=== PATIENT | male | born 1960 | race Caucasian/White ===

== ENCOUNTER → 2019-11-24 | Outpatient (REF) | payer OTHER ==
[~2019-11-24] MED LIST: COCO1CAP PO; COCOOIL6 XX; MULTTAB PO
[2019-11-24 10:03] LABS: BASO % 0.5 % (0.0-1.0); EOS # 0.1 10^3/uL (0.0-0.5); EOS % 1.8 % (0.0-3.0); HEMATOCRIT 44.4 % (42.0-52.0); HEMOGLOBIN 15.2 g/dl (13.5-17.5); LYMPH # 1.7 10^3/uL (1.5-5.0); LYMPH % 25.1 % (24.0-44.0); MEAN CORPUSCULAR HEMOGLOBIN 31.1 pg (27.0-33.0); MEAN CORPUSCULAR HGB CONC 34.2 g/dl (32.0-36.5); MONO # 0.6 10^3/uL (0.0-0.8); MONO % 9.6 % (0.0-5.0); NEUTROPHILS # 4.2 10^3/uL (1.5-8.5); NEUTROPHILS % 62.8 % (36.0-66.0); PLATELET COUNT, AUTOMATED 244 10^3/uL (150-450); RED BLOOD COUNT 4.88 10^6/uL (4.30-6.10); WHITE BLOOD COUNT 6.7 10^3/uL (4.0-10.0)
[2019-11-24 10:28] LABS: ALBUMIN 3.9 GM/DL (3.2-5.2); ALT/SGPT 46 U/L (12-78); BILIRUBIN,TOTAL 0.6 MG/DL (0.2-1.0); BLOOD UREA NITROGEN 15 MG/DL (7-18); CARBON DIOXIDE LEVEL 28 MEQ/L (21-32); CHLORIDE LEVEL 107 MEQ/L (98-107); CHOLESTEROL LEVEL 207 MG/DL (<200); CHOLESTEROL RISK RATIO 3.338 (<5); CREATININE FOR GFR 0.94 MG/DL (0.70-1.30); GLOMERULAR FILTRATION RATE > 60.0 (>56); GLUCOSE, FASTING 97 MG/DL (70-100); HDL CHOLESTEROL 62 MG/DL (>40); LDL CHOLESTEROL 129 MG/DL (<100); NON-HDL-C 145 MG/DL; POTASSIUM SERUM 4.4 MEQ/L (3.5-5.1); SODIUM LEVEL 140 MEQ/L (136-145); TOTAL PROTEIN 6.5 GM/DL (6.4-8.2); TRIGLYCERIDES LEVEL 78 MG/DL (<150)
== END ==
LOC: M LABDRAW1 08:10
PROVIDERS: ATTEND Family Medicine
DX: I10 Essential (primary) hypertension (principal); F52.21 Male erectile disorder
CPT/HCPCS: 36415; 80053; 80061; 85025; G0103

== ENCOUNTER 2021-06-09 00:16 | Emergency (ER) | payer OTHER ==
[~2021-06-09] VITALS: Ht 167.6 cm; Wt 83.3 kg
[2021-06-09] MEDS ORDERED: LISI10TA22 PO (00:28)
[2021-06-09] MEDS ORDERED: SILD20TA50 PO (00:28)
[2021-06-09 00:53] LABS: BASO % 0.3 % (0.0-1.0); EOS # 0.1 10^3/uL (0.0-0.5); EOS % 0.8 % (0.0-3.0); HEMATOCRIT 41.9 % (42.0-52.0); HEMOGLOBIN 14.9 g/dl (13.5-17.5); LYMPH # 1.3 10^3/uL (1.5-5.0); LYMPH % 14.8 % (24.0-44.0); MEAN CORPUSCULAR HEMOGLOBIN 31.3 pg (27.0-33.0); MEAN CORPUSCULAR HGB CONC 35.6 g/dl (32.0-36.5); MONO # 0.6 10^3/uL (0.0-0.8); MONO % 6.9 % (2.0-8.0); NEUTROPHILS # 6.8 10^3/uL (1.5-8.5); NEUTROPHILS % 76.9 % (36.0-66.0); PLATELET COUNT, AUTOMATED 222 10^3/uL (150-450); RED BLOOD COUNT 4.76 10^6/uL (4.30-6.10); WHITE BLOOD COUNT 8.9 10^3/uL (4.0-10.0)
[2021-06-09] MEDS ORDERED: ONDANSETRON 4MG/2ML VIAL IV ONE (01:10)
[2021-06-09 01:19] LABS: ALBUMIN 4.1 GM/DL (3.2-5.2); ALT/SGPT 29 U/L (12-78); BILIRUBIN,DIRECT < 0.1 MG/DL (0.0-0.2); BILIRUBIN,TOTAL 0.3 MG/DL (0.2-1.0); BLOOD UREA NITROGEN 18 MG/DL (7-18); CALCIUM LEVEL 8.7 MG/DL (8.8-10.2); CARBON DIOXIDE LEVEL 29 MEQ/L (21-32); CHLORIDE LEVEL 107 MEQ/L (98-107); CK-MB VALUE MASS 1.5 NG/ML (<3.6); CPK CREATINE PHOSPHOKINASE 176 U/L (39-308); CREATININE FOR GFR 1.11 MG/DL (0.70-1.30); GLOMERULAR FILTRATION RATE > 60.0 (>49); GLUCOSE, FASTING 112 MG/DL (70-100); LIPASE 156 U/L (73-393); MB/CK RELATIVE INDEX 0.85 (< OR =4); POTASSIUM SERUM 4.1 MEQ/L (3.5-5.1); SODIUM LEVEL 140 MEQ/L (136-145); TOTAL PROTEIN 6.8 GM/DL (6.4-8.2); TROPONIN I < 0.02 NG/ML (< 0.10)
[2021-06-09 01:20] LABS: INR 0.85
[2021-06-09 01:21] LABS: PARTIAL THROMBOPLASTIN TIME 27.8 SECONDS (25.9-37.0)
[2021-06-09] MEDS ORDERED: MORPHINE 2 MG/ML 1ML VIAL (J2270) IV ONE (02:30)
[2021-06-09] MEDS ORDERED: HALOPERIDOL 5MG/ML VIAL (J1630 PER 1) IV ONE (02:40)
--- NOTE | 2021-06-09 02:43 | REPVR ---
PROCEDURE INFORMATION: Exam: XR Chest Exam date and time: 06/09/2021 1:32 AM Age: 60 years old Clinical indication: Other: Chest pain TECHNIQUE: Imaging protocol: XR of the chest. Views: 1 view. COMPARISON: CT Spine,thoracic w/o contrast 08/06/2015 12:44 PM FINDINGS: Lungs: Unremarkable. No consolidation. Pleural spaces: Unremarkable. No pleural effusion. No pneumothorax. Heart/Mediastinum: Unremarkable. No cardiomegaly. Vasculature: Elongation of the thoracic aorta. Bones/joints: Unremarkable. IMPRESSION: No acute cardiopulmonary process. Electronically signed by: Elliott Valadez On 06/09/2021 02:43:00 AM
--- NOTE | 2021-06-09 02:50 | REPVR ---
PROCEDURE INFORMATION: Exam: US Abdomen, Limited; Right Upper Quadrant Exam date and time: 06/09/2021 2:25 AM Age: 60 years old Clinical indication: Abdominal pain; Acute; Additional info: Right upper quadrant pain and nausea TECHNIQUE: Imaging protocol: US abdomen. Real time ultrasound with image documentation. Limited exam focused on the right upper quadrant. COMPARISON: CT Spine,thoracic w/o contrast 08/06/2015 12:44 PM FINDINGS: Liver: Normal. No masses. Gallbladder: There is cholelithiasis and biliary sludge. No pathologic gallbladder wall thickening. Common bile duct: Normal. No stones. No dilation. Pancreas: No focal abnormality involving the visualized portions of the pancreas. Right kidney: Right kidney measures up to 11.9 cm and is without hydronephrosis. IMPRESSION: 1. Distended gallbladder with cholelithiasis and biliary sludge. 2. No pathologic gallbladder wall thickening. Electronically signed by: Elliott Valadez On 06/09/2021 02:49:59 AM
[2021-06-09] MEDS ORDERED: ISOVUE-370 76% 100ML VIAL As Ordered ONE (03:04)
--- NOTE | 2021-06-09 03:41 | REPVR ---
PROCEDURE INFORMATION: Exam: CTA Chest With Contrast Exam date and time: 06/09/2021 3:16 AM Age: 60 years old Clinical indication: Chest wall pain; Additional info: Chest and epigastric pain TECHNIQUE: Imaging protocol: Computed tomographic angiography of the chest with contrast. 3D rendering (Not supervised by radiologist): MIP and/or 3D reconstructed images were created by the technologist. Radiation optimization: All CT scans at this facility use at least one of these dose optimization techniques: automated exposure control; mA and/or kV adjustment per patient size (includes targeted exams where dose is matched to clinical indication); or iterative reconstruction. Contrast material: ISOVUE 370; Contrast volume: 100 ml; Contrast route: INTRAVENOUS (IV); COMPARISON: CR PORTABLE CHEST X-RAY 06/09/2021 1:22 AM FINDINGS: Pulmonary arteries: Normal. No pulmonary emboli. Aorta: Unremarkable. No aortic aneurysm. No aortic dissection. Lungs: There are bilateral posterior dependent changes. No consolidation to indicate pneumonia. Pleural spaces: Unremarkable. No pneumothorax. No pleural effusion. Heart: Unremarkable. No cardiomegaly. No pericardial effusion. Lymph nodes: Unremarkable. No enlarged lymph nodes. Bones/joints: There are degenerative changes involving the spine. Soft tissues: Unremarkable. IMPRESSION: No acute abnormality involving the chest. Electronically signed by: Elliott Valadez On 06/09/2021 03:40:54 AM
--- NOTE | 2021-06-09 03:53 | REPVR ---
PROCEDURE INFORMATION: Exam: CT Abdomen And Pelvis With Contrast Exam date and time: 06/09/2021 3:16 AM Age: 60 years old Clinical indication: Abdominal pain; Epigastric; Additional info: Chest and epigastric pain, evaluate cbd TECHNIQUE: Imaging protocol: Computed tomography of the abdomen and pelvis with contrast. Radiation optimization: All CT scans at this facility use at least one of these dose optimization techniques: automated exposure control; mA and/or kV adjustment per patient size (includes targeted exams where dose is matched to clinical indication); or iterative reconstruction. Contrast material: ISOVUE 370; Contrast volume: 100 ml; Contrast route: INTRAVENOUS (IV); COMPARISON: GALLBLADDER US 06/09/2021 2:15 AM FINDINGS: Limitations: Patient motion. Lungs: There are bibasilar dependent changes. Liver: Normal. No mass. Gallbladder and bile ducts: Cholelithiasis. Gallbladder is distended. Pancreas: Normal. No ductal dilation. Spleen: Normal. No splenomegaly. Adrenal glands: Normal. No mass. Kidneys and ureters: Normal. No hydronephrosis. Stomach and bowel: Unremarkable. No obstruction. No mucosal thickening. Appendix: No evidence of appendicitis. Intraperitoneal space: Unremarkable. No free air. No significant fluid collection. Vasculature: There are phleboliths within the pelvis. Lymph nodes: Unremarkable. No enlarged lymph nodes. Urinary bladder: Unremarkable as visualized. Reproductive: Unremarkable as visualized. Bones/joints: There are degenerative changes involving the spine. Soft tissues: Small fat containing umbilical hernia. IMPRESSION: 1. Distended gallbladder with cholelithiasis. Common bile duct is normal. 2. Additional findings as above. Electronically signed by: Elliott Valadez On 06/09/2021 03:52:59 AM
[2021-06-09] MEDS ORDERED: GI COCKTAIL 50ML BTL(HYOSCYAMINE/MAALOX/LIDOCAINE VISCOUS)(1:3:1) PO ONE (04:10)
[2021-06-09 05:35] LABS: CK-MB VALUE MASS 1.9 NG/ML (<3.6); CPK CREATINE PHOSPHOKINASE 151 U/L (39-308); MB/CK RELATIVE INDEX 1.26 (< OR =4); TROPONIN I < 0.02 NG/ML (< 0.10)
--- NOTE | 2021-06-09 05:42 | ECGEPIP ---
[facility] - ED Test Date: 2021-06-09 Pat Name: ANEESH ELLINGTON Department: Room: - Gender: Male Park Activities Coordinator: theresa : 1960 Requested By: DRAKE Cuevas Order Number: [id number] Reading MD: Odell Barajas Measurements Intervals [place] Rate: 45 P: 64 [place]: 144 QRS: 65 QRSD: 92 T: 32 QT: 458 QTc: 396 Interpretive Statements Sinus bradycardia NSTTW ABNORMALITY(S) NO PRIORS FOR COMPARISON Electronically Signed on 06-09-2021 5:42:12 EDT by Odell Barajas
[2021-06-09] MEDS ORDERED: ZOFR4TAB16 PO (07:10)
[2021-06-09 07:23] VITALS: BP 159/81
--- NOTE | 2021-06-09 20:39 | ECGEPIP ---
[facility] - ED Test Date: 2021-06-09 Pat Name: ANEESH ELLINGTON Department: Room: - Gender: Male Disability Benefits Specialist: JCOOSilvia : 1960 Requested By: DRAKE Cuevas Order Number: [id number] Reading MD: Odell Barajas Measurements Intervals [place] Rate: 47 P: 48 ME: 190 QRS: 16 QRSD: 88 T: -6 QT: 464 QTc: 410 Interpretive Statements Sinus bradycardia NSTTW ABNORMALITY(S) SIMILAR TO 06/09/21 Electronically Signed on 06-09-2021 20:39:29 EDT by Odell Barajas
== END 2021-06-09 07:31 | disposition home or self-care (01) ==
LOC: M ED 00:16
DX: K80.50 Calculus of bile duct without cholangitis or cholecystitis without obstruction (principal); I10 Essential (primary) hypertension; Z79.899 Other long term (current) drug therapy
CPT/HCPCS: 71045; 71275; 74177; 76705; 80048; 80076; 82550; 82553; 83690; 84484; 85025; 85610; 85730; 93005; 93041; 94760; 96374; 96375; 99285; J1630; J2270; J2405; Q9967

== ENCOUNTER → 2021-07-11 | Outpatient (CLI) | payer OTHER ==
[~2021-07-11] MED LIST changes: +LISI10TA22 PO; +SILD20TA50 PO; +ZOFR4TAB16 PO
== END ==
LOC: M LABSMTC 11:13
PROVIDERS: ATTEND Anesthesiology
DX: Z11.52 Encounter for screening for COVID-19 (principal); Z20.822 Contact with and (suspected) exposure to COVID-19

== ENCOUNTER 2021-07-16 09:13 | Day surgery (SDC) | payer OTHER ==
[~2021-07-16] VITALS: Ht 167.6 cm; Wt 79.6 kg
[~2021-07-16 09:13] MED LIST changes: +LIDOCAINE 1% MDV 20ML VIAL SQ PRN; +LR 1,000 ML IV ONE; +ceFAZolin SOD 2 GM in IV 1 EA IV ONE
--- OUTSIDE RECORDS SUMMARY | 2021-07-16 09:19 | CCD | Continuity of Care Document ---
Author Author Adama FELDMAN M.D. Organization Unknown Address [address] [place] [address] Phone [phone] Care Team Providers Care Control Systems Drafting Officer Name Role Phone Ysabel MTZ M.D., Gordon Chaim UZIEL [phone] Problems Active Problems Provider Date Essential hypertension Salome Feldman M.D. Onset: 01/31 Social History Type Date Description Comments Sex Unknown Tobacco Use Start: Unknown End: Unknown denies cigarette use Tobacco Use Start: Unknown End: Unknown Former Smoke less Tobacco User, Used 3 Times Daily quit after doing it for 10 years, in 200 5 ETOH Use Occasionally consumes alcohol be er or wine-7 drinks a week, sometimes less Tobacco Use Start: 09/07/79 End: 09/07/05 Patient is a forme r smoker smoked 1 ppd Recreational Drug Use Denies Drug Use Smoking Status Reviewed: 06/10/21 Patient is a former smoker sm oked 1 ppd Exercise Type/Frequency Exercises sporadically Tattoo/Piercing NOne Sun Exposure Does not use sunscreen Seat Belt/Car Seat Always uses seat belt Bike Helmet Never Smoke Alarms Yes Smoke Alarms Carbon Monoxide Detector: Yes Allergies and adverse reactions Description No Known Drug Allergies Medications Active Medications SIG Qnty Indications Ordering Provide r Date Lisinopril 10mg Tablets Take One Tablet By Mouth Every Day 90tabs I10 Salome Feldman M.D. 017 Vitamin D 1000Unit Tablets 1 po qd 100tabs Salome Feldman M.D. 02/26/2010 Sildenafil Citrate 20mg Tablets take 1-2 tablets by mouth prior to intercourse as directed Unknown Immunizations CPT Code Status Date Vaccine Lot # [id number] Given 12/17/2020 Moderna Sars-(Co vid-19) vaccine, mRNA, LNP-S, PF, 100 mcg/ 0.5 mL 43240 Given 11/16/2020 Moderna Sars-(Co vid-19) vaccine, mRNA, LNP-S, PF, 100 mcg/ 0.5 mL [id number] Given 10/17/2019 Boostrix (Tdap) Tetnus, Diphtheria Toxoids & Acellular Pertussis [id number] Given 07/16/2015 TB Intradermal Test [id number] 32503 Given 12/11/2009 TB Intradermal Test 83885 83049 Given 12/27/2007 TB Intradermal Test [id number] Refused 10/17/2019 Influenza Virus Vaccine, Pradeep drivalent,multidose vial Vital Signs Date Vital Result Comment 06/10/2021 7:17am BP Systolic 124 mmHg BP Diastolic 78 mmHg Heart Rate 66 /min Body Temperature 96.8 F Respiratory Rate 17 /min Height 67 inches 5'7" Weight 180.38 lb O2 % BldC Oximetry 98 % Peak Expiratory Flow Rate 475 Estimated Peak Flow Rate [place] Body Weight 148 lb BMI (Body Mass Index) 28.2 kg/m2 11/28/2020 7:40am BP Systolic 118 mmHg BP Diastolic 72 mmHg Heart Rate 52 /min Body Temperature 97.1 F Respiratory Rate 16 /min Height 67 inches 5'7" Weight 180.38 lb Peak Expiratory Flow Rate 475 Estimated Peak Flow Rate [place] Body Weight 148 lb BMI (Body Mass Index) 28.2 kg/m2 Results Test Acquired Date Facility Test Result H/L Range Note Coronavirus 2019 Nasopharygeal 07/11/20[place] [id number] [phone] Coronavirus 2019 Nasopharygeal ASSAY INFORMATIO <SEE N OTE> 1 Cardiac Marker Panel 06/09/2021 Patient Service [place], [place] [id number] [phone] CPK Creatine Phosphokinase 151 U/L Normal 39-30 8 CK-MB Value Mass 1.9 NG/ML Normal <3.6 MB/CK Relative Index 1.26 Normal < Or =4 2 Troponin I < 0.02 NG/ML Normal < 0.10 3 PT & Aptt 06/09/[address] [facility] [address] [phone] Prothrombin Time 12.0 seconds Normal 12.7-14.5 Inr 0.85 Normal 4 Partial Thromboplastin Time 27.8 seconds Normal 25.9-37.0 CBC With Differential 06/09/2021 Patient Service Ce [facility]ter [facility] [place] [address] [phone] White Blood Count 8.9 10 Normal 4.0-10.0 Red Blood Count 4.76 10 Normal 4.30-6.10 Hemoglobin 14.9 g/dL Normal 13.5-17.5 Hematocrit 41.9 % Low 42.0-52.0 Mean Corpuscular Volume 88.0 fl Normal 80.0-96.0 Mean Corpuscular Hemoglobin 31.3 pg Normal 27.0-33.0 Mean Corpuscular HGB Conc 35.6 g/dL Normal 32.0-36.5 Red Cell Distribution Width 11.5 % Normal 11.5-14.5 Platelet Count, Automated 222 10 Normal 150-450 Neutrophils % 76.9 % High 36.0-66.0 Lymph % 14.8 % Low 24.0-44.0 [place] % 6.9 % Normal 2.0-8.0 Eos % 0.8 % Normal 0.0-3.0 Baso % 0.3 % Normal 0.0-1.0 Immature Granulocyte % 0.3 % Normal 0-3.0 Nucleated Red Blood Cell % 0.0 % Normal 0-0 Neutrophils # 6.8 10 Normal 1.5-8.5 Lymph # 1.3 10 Low 1.5-5.0 [place] # 0.6 10 Normal 0.0-0.8 Eos # 0.1 10 Normal 0.0-0.5 Baso # 0.0 10 Normal 0.0-0.2 Cardiac Marker Panel 06/09/[address] [place] [address] [phone] CPK Creatine Phosphokinase 176 U/L Normal 39-30 8 CK-MB Value Mass 1.5 NG/ML Normal <3.6 MB/CK Relative Index 0.85 Normal < Or =4 5 Troponin I < 0.02 NG/ML Normal < 0.10 6 Liver Profile 06/09/2021 [place] [address] [phone] Ast/Sgot 18 U/L Normal 7-37 Alt/SGPT 29 U/L Normal 12-78 Alkaline Phosphatase 65 U/L Normal 45-117 Bilirubin,Total 0.3 mg/dL Normal 0.2-1.0 Bilirubin,Direct < 0.1 mg/dL Normal 0.0-0.2 Total Protein 6.8 GM/DL Normal 6.4-8.2 Albumin 4.1 GM/DL Normal 3.2-5.2 Albumin/Globulin Ratio 1.5 Normal Basic Metabolic Profile 06/09/2021 [place] [address] [phone] Glucose, Fasting 112 mg/dL High 70-100 Blood Urea Nitrogen 18 mg/dL Normal 7-18 Creatinine For GFR 1.11 mg/dL Normal 0.70-1.30 Glomerular Filtration Rate > 60.0 Normal >49 7 Sodium Level 140 mEq/L Normal 136-145 Potassium Serum 4.1 mEq/L Normal 3.5-5.1 Chloride Level 107 mEq/L Normal 98-107 Carbon Dioxide Level 29 mEq/L Normal 21-32 Anion Gap 4 mEq/L Low 8-16 Calcium Level 8.7 mg/dL Low 8.8-10.2 Laboratory test finding 06/09/2021 [place] [address] [phone] Lipase 156 U/L Normal 73-393 1 ASSAY INFORMATION: Real Time RT-PCR NOTE: The COVID-19 assay has been cleared by the U.S. Food and Drug Administration under the Emergency Use Authorization (EUA). [email or web address] and [facility] are designated as high complexity laboratories by the Clinical Laboratory Improvement Amendments of 1988(CLIA) and are qualified to perform this test. Not Detected 2 DIAGNOSIS CRITERIA MMB ng/ml Relative Index (RI) NON-AMI < or = 5 N/A ARIAS ZONE > 5 < or = 4 AMI > 5 > 4 3 Troponin I Reference Interva l for [employer] LOCI: 99th Percentile= 0.00-0.045 ng/ml Risk Stratification: <= 0.10 ng/ml Decreased Risk for Adverse Clinical Events. 0.10-1.50 ng/ml Increased Risk for Adv erse Clinical Events. Evaluation of additional criterion and/or repeat testing in 2-6 hours is suggested to rule out myocardial damage. >= 1.50 ng/ml Indicative of Myocardial Injury. 4 THERAPUTIC HUMAN INR VALUES INDICATIONS NORMAL RANGES PROPHYLAXIS/TREATMENT OF: VENOUS THROMBOSIS 2.0-3.0 PULMONARY EMBOLISM 2.0-3.0 PREVENTION OF SYSTEMIC EMBOLISM FROM: TISSUE HEART VALVES 2.0-3.0 ACUTE MYOCARDIAL INFARCTION 2.0-3.0 VALVULAR HEART DISEASE 2.0-3.0 ATRIAL FIBRILLATION 2.0-3.0 MECHANICAL VALVES(HIGH RISK) 2.5-3.5 RECURRENT MYOCARDIAL INFARCTION 2.5-3.5 5 DIAGNOSIS CRITERIA MMB ng/ml Relative Index (RI) NON-AMI < or = 5 N/A ARIAS ZONE > 5 < or = 4 AMI > 5 > 4 6 Troponin I Reference Interva l for [employer] LOCI: 99th Percentile= 0.00-0.045 ng/ml Risk Stratification: <= 0.10 ng/ml Decreased Risk for Adverse Clinical Events. 0.10-1.50 ng/ml Increased Risk for Adv erse Clinical Events. Evaluation of additional criterion and/or repeat testing in 2-6 hours is suggested to rule out myocardial damage. >= 1.50 ng/ml Indicative of Myocardial Injury. 7 Units are mL/min/1.73 m2 Chronic Kidney Disease Staging per NKF: Stage I & II GFR >=60 Normal to Mildly Decreased Stage III GFR 30-59 Moderately Decreased Stage IV GFR 15-29 Severely Decreased Stage V GFR <15 Very Little GFR Left ESRD GFR <15 on SMALL ORDER CUTTER Procedures Date Code Description Status 06/10/2021 10245 Preventive Medicine 40/64 Years, Est. Completed Medical Devices Description No Information Available Encounters Type Date Location Provider Dx Diagnosis Office Visit 06/10/2021 7:15a Main Office Salome Feldman M.D. I 10 Essential (primary) hypertension F52.21 Male erectile disorder Z00.00 Encntr for general adult med ical exam w/o abnormal findings K80.80 Other cholelithiasis without obstruction Assessments Date Code Description Provider 06/10/2021 I10 Essential (primary) hypertension Salome Feldman M.D. 06/10/2021 F52.21 Male erectile disorder Salome Feldman M.D. 06/10/2021 Z00.00 Encounter for genera l adult medical examination without abnormal findings Salome Feldman M.D. 06/10/2021 K80.80 Other cholelithiasis without obs truction Salome Feldman M.D. Plan of Treatment Future Appointment(s):* 12/11/2021 7:15 am - Salome Feldman M.D. at Main Office 06/10/2021 - Salome Feldman M.D.* I10 Essential (primary) hypertension* New Labs:* CBC With Differential, Scheduled: 06/10/21 * Comprehensive Metabolic Profil, Scheduled: 06/10/21 * Lipid Panel, Scheduled: 06/10/21 * PSA Screening, Scheduled: 06/10/21 * Follow up:* 6 months, with labs * F52.21 Male erectile disorder * Z00.00 Encounter for general adult medical examination without abnormal findings* Comments:* due for repeat colonoscopy now, labs in 6 months. * K80.80 Other cholelithiasis without obstruction* Comments:* refer to surgery. * All * Referral:* Ysabel MTZ M.D., Gordon Dukes, Surgery,General Goals 06/10/2021 - Salome Feldman M.D.* I10 Essential (primary) hypertension* Stay active and continue meds to maintain good blood pressure readings. Functional Status Functional Condition Comment Date Status Bifocal glasses Active Independent with all ADL's Activ e Mental Status Mental Condition Comment Date Status None Active Referrals Refer to Reason for Referral Status Appt Date Ysabel MTZ M.D., Gordon Dukes Patient is due in August 08 for 5 year repeat colonoscopy. Thank you. Closed 06/19/2021 [address] [address] [phone]
--- OUTSIDE RECORDS SUMMARY | 2021-07-16 09:19 | CCD | Continuity of Care Document ---
Author Author Adama GRADY MD Organization Unknown Address [address] [address] Phone [phone] Care Team Providers Care Political Advisor Name Role Phone Salome Davis M.D. AUTM [phone] Problems Active Problems Provider Date Essential hypertension Gordon Grady JR, MD Onset: 06/19/20 21 Social History Type Date Description Comments Sex Unknown ETOH Use 5 A Week Tobacco Use Start: Unknown Denies Smoking Recreational Drug Use Denies Drug Use Allergies and adverse reactions Description No Known Drug Allergies Medications Active Medications SIG Qnty Indications Ordering Provide r Date Augmentin 500-125mg Tablets 1 by mouth twice a day 20tabs Gordon Grady JR, MD 06/19/2021 Lisinopril 10mg Tablets Take One Tablet By Mouth Every Day Salome Davis M.D. Sildenafil Citrate 20mg Tablets as needed Unknown Immunizations Description No Information Available Vital Signs Date Vital Result Comment 06/19/2021 1:25pm BP Systolic 158 mmHg BP Diastolic 10 mmHg Heart Rate 54 /min Body Temperature 98.3 F Height 66 inches 5'6" Weight 178.38 lb BMI (Body Mass Index) 28.8 kg/m2 [place] Body Weight 142 lb Weight 80.911 kg BSA (Body Surface Area) 1.90 m2 Results Description No Information Available Procedures Date Code Description Status 06/19/2021 09561 Office/Outpatient New Moderate M DM 45-59 Minutes Completed Medical Devices Description No Information Available Encounters Type Date Location Provider Dx Diagnosis Office Visit 06/19/2021 1:30p [facility] Gordon sierra JR, MD K80.20 Calculus of gallbladder w/o cholecystiti s w/o obstruction Assessments Date Code Description Provider 06/19/2021 K80.20 Calculus of gallblad arlin without cholecystitis without obstruction Gordon Grady JR, MD Plan of Treatment Future Appointment(s):* 07/24/2021 8:45 am - oGrdon Grady JR, MD at [facility] * 07/16/2021 1:45 pm - Gordon Grady JR, MD at [facility] 06/19/2021 - Gordon Grady JR, MD* K80.20 Calculus of gallbladder without cholecystitis without obstruction* Comments:* The patient had an episode of right upper quadrant pain associated with gallstones. The patient had evidence of cholecystitis without evidence of common bile duct obstruction. Given their symptomatic disease and evidence of gallstones would recommend laparoscopic cholecystectomy. The risks as well as benefits of operative intervention have been discussed extensively with the patient and they agreed to proceed with operative intervention as soon as possible. The risks include but are not limited to infection bleeding damage to surrounding structures i ncluding liver and pancreas and duodenum bile ducts or bowel and possible need for open operative intervention. Actually has some tenderness in the right upper quadrant and its significant enough any has a palpable gallbladder at this time do feel that it is reasonable to treat him with some antibiotics and see how he does with these antibiotics if he has increasing pain discomfort or persistence of symptoms he needs contact the office for reevaluation. If he has increasing pain as well he may need to be seen in the emergency room for further evaluation and treatment. Functional Status Description No Information Available Mental Status Description No Information Available Referrals Refer to Dr Reason for Referral Status Appt Date Gordon Grady JR, MD GALLBLADDER/COLONOSCOPY Scheduled 06/19/[address] [place] [address] [phone]
--- OUTSIDE RECORDS SUMMARY | 2021-07-16 09:19 | CCD | Continuity of Care Document ---
Author Author Adama GRADY MD Organization Unknown Address [address] [facility] [address] [place] [address] Phone [phone] Care Team Providers Care Crm Architect Name Role Phone Salome Davis M.D. [facility] [phone] Problems Active Problems Provider Date Essential hypertension [...] lb BMI (Body Mass Index) 28.8 kg/m2 [place] Body Weight 142 lb Weight 80.911 kg BSA (Body Surface Area) 1.90 m2 Results Description No Information Available Procedures Description No Information Available Medical Devices Description No Information Available Encounters Description No Information Available Assessments Description No Information Available Plan of Treatment Future Appointment(s):* 07/24/2021 8:45 am - Gordon Grady JR, MD at [facility] * 07/16/2021 1:45 pm - Gordon Grady JR, MD at [facility] Functional Status Description No Information Available Mental Status Description No Information Available Referrals Refer to Reason for Referral Status Appt Date Gordon Grady JR, MD GALLBLADDER/COLONOSCOPY Scheduled 06/19/[address] [address] [phone]
--- OUTSIDE RECORDS SUMMARY | 2021-07-16 09:20 | CCD | Continuity of Care Document ---
Author Author Adama FELDMAN M.D. Organization Unknown Address [address] [place] [address] Phone [phone] Care Team Providers Care Automatic Spinning Lathe Setter Name Role Phone Ysabel MTZ M.D., Gordon Chaim UZIEL [phone] Problems Active Problems Provider Date Essential [...] Yes Smoke Alarms Carbon Monoxide Detector: Yes Allergies, Adverse Reactions, Alerts Description No Known Drug Allergies Medications Active [...] CPT Code Status Date Vaccine Lot # [id number] Given 12/17/2020 Moderna Sars-(Co vid-19) vaccine, mRNA, LNP-S, PF, 100 mcg/ 0.5 mL [id number] Given 11/16/2020 Moderna Sars-(Co vid-19) vaccine, mRNA, LNP-S, PF, 100 mcg/ 0.5 mL 66662 Given 10/17/2019 Boostrix (Tdap) Tetnus, Diphtheria Toxoids & Acellular Pertussis [id number] [id number] Given 07/16/2015 TB Intradermal Test [id number] 63744 Given 12/11/2009 TB Intradermal Test [id number] 86136 Given 12/27/2007 TB Intradermal Test [id number] 81630 Refused 10/17/2019 Influenza Virus Vaccine, Pradeep drivalent,multidose vial Vital Signs Date Vital Result Comment 06/10/2021 7:17am BP Systolic 124 mmHg BP Diastolic 78 mmHg Heart Rate 66 /min Body Temperature 96.8 F Respiratory Rate 17 /min Height 67 inches 5'7" Weight 180.38 lb O2 % BldC Oximetry 98 % Peak Expiratory Flow Rate 475 Estimated Peak Flow Rate [place] Body Weight 148 lb BMI (Body Mass Index) 28.2 kg/m2 11/28/2020 7:40am BP Systolic 118 mmHg BP Diastolic 72 mmHg Heart Rate 52 /min Body Temperature 97.1 F Respiratory Rate 16 /min Height 67 inches 5'7" Weight 180.38 lb Peak Expiratory Flow Rate 475 Estimated Peak Flow Rate [place] Body Weight 148 lb BMI (Body Mass Index) 28.2 kg/m2 Results Test Acquired Date Facility Test Result H/L Range Note Cardiac Marker Panel 06/09/2021 Patient Service [facility] [place] [address] [phone] CPK Creatine Phosphokinase 151 U/L Normal 39-30 8 CK-MB Value Mass 1.9 NG/ML Normal <3.6 MB/CK Relative Index 1.26 Normal < Or =4 1 Troponin I < 0.02 NG/ML Normal < 0.10 2 PT & Aptt 06/09/2021 Patient Service [facility] [place] [address] [phone] Prothrombin Time 12.0 seconds Normal 12.7-14.5 Inr 0.85 Normal 3 Partial Thromboplastin Time 27.8 seconds Normal 25.9-37.0 CBC With Differential 06/09/2021 [place] [address] [phone] White Blood Count 8.9 10 Normal 4.0-10.0 [...] 36.0-66.0 Lymph % 14.8 % Low 24.0-44.0 [place] % 6.9 % Normal 2.0-8.0 Eos % 0.8 % Normal 0.0-3.0 Baso % 0.3 % Normal 0.0-1.0 Immature Granulocyte % 0.3 % Normal 0-3.0 Nucleated Red Blood Cell % 0.0 % Normal 0-0 Neutrophils # 6.8 10 Normal 1.5-8.5 Lymph # 1.3 10 Low 1.5-5.0 [place] # 0.6 10 Normal 0.0-0.8 Eos # 0.1 10 Normal 0.0-0.5 Baso # 0.0 10 Normal 0.0-0.2 Cardiac Marker Panel 06/09/[address] [place] [address] [phone] CPK Creatine Phosphokinase 176 U/L Normal 39-30 8 CK-MB Value Mass 1.5 NG/ML Normal <3.6 MB/CK Relative Index 0.85 Normal < Or =4 4 Troponin I < 0.02 NG/ML Normal < 0.10 5 Liver Profile 06/09/2021 [facility] [place] [address] [phone] Ast/Sgot 18 U/L Normal 7-37 Alt/SGPT 29 U/L Normal 12-78 Alkaline Phosphatase 65 U/L Normal 45-117 Bilirubin,Total 0.3 mg/dL Normal 0.2-1.0 Bilirubin,Direct < 0.1 mg/dL Normal 0.0-0.2 Total Protein 6.8 GM/DL Normal 6.4-8.2 Albumin 4.1 GM/DL Normal 3.2-5.2 Albumin/Globulin Ratio 1.5 Normal Basic Metabolic Profile 06/09/2021 Patient Service [place] [id number] [phone] Glucose, Fasting 112 mg/dL High 70-100 Blood Urea Nitrogen 18 mg/dL Normal 7-18 Creatinine For GFR 1.11 mg/dL Normal 0.70-1.30 Glomerular Filtration Rate > 60.0 Normal >49 6 Sodium Level 140 mEq/L Normal 136-145 Potassium Serum 4.1 mEq/L Normal 3.5-5.1 Chloride Level 107 mEq/L Normal 98-107 Carbon Dioxide Level 29 mEq/L Normal 21-32 Anion Gap 4 mEq/L Low 8-16 Calcium Level 8.7 mg/dL Low 8.8-10.2 Laboratory test finding 06/09/2021 [place] [address] [phone] Lipase 156 U/L Normal 73-393 1 DIAGNOSIS CRITERIA MMB ng/ml Relative Index (RI) NON-AMI < or = 5 N/A ARIAS ZONE > 5 < or = 4 AMI > 5 > 4 2 Troponin I Reference Interva l for Siemens [employer] LOCI: 99th Percentile= 0.00-0.045 ng/ml Risk Stratification: <= 0.10 ng/ml Decreased Risk for Adverse Clinical Events. 0.10-1.50 ng/ml Increased Risk for Adv erse Clinical Events. Evaluation of additional criterion and/or repeat testing in 2-6 hours is suggested to rule out myocardial damage. >= 1.50 ng/ml Indicative of Myocardial Injury. 3 THERAPUTIC HUMAN INR VALUES INDICATIONS NORMAL RANGES PROPHYLAXIS/TREATMENT OF: VENOUS THROMBOSIS 2.0-3.0 PULMONARY EMBOLISM 2.0-3.0 PREVENTION OF SYSTEMIC EMBOLISM FROM: TISSUE HEART VALVES 2.0-3.0 ACUTE MYOCARDIAL INFARCTION 2.0-3.0 VALVULAR HEART DISEASE 2.0-3.0 ATRIAL FIBRILLATION 2.0-3.0 MECHANICAL VALVES(HIGH RISK) 2.5-3.5 RECURRENT MYOCARDIAL INFARCTION 2.5-3.5 4 DIAGNOSIS CRITERIA MMB ng/ml Relative Index (RI) NON-AMI < or = 5 N/A ARIAS ZONE > 5 < or = 4 AMI > 5 > 4 5 Troponin I Reference Interva l for Clarient LOCI: 99th Percentile= 0.00-0.045 ng/ml Risk Stratification: <= 0.10 ng/ml Decreased Risk for Adverse Clinical Events. 0.10-1.50 ng/ml Increased Risk for Adv erse Clinical Events. Evaluation of additional criterion and/or repeat testing in 2-6 hours is suggested to rule out myocardial damage. >= 1.50 ng/ml Indicative of Myocardial Injury. 6 Units are mL/min/1.73 m2 Chronic Kidney Disease Staging per NKF: Stage I & II GFR >=60 Normal to Mildly Decreased Stage III GFR 30-59 Moderately Decreased Stage IV GFR 15-29 Severely Decreased Stage V GFR <15 Very Little GFR Left ESRD GFR <15 on BIOMECHANICAL ENGINEER Procedures Date Code Description Status 06/10/2021 51097 Preventive Medicine 40/64 Years, Est. Completed Medical [...] for 5 year repeat colonoscopy. Thank you. Sent [address] [address] [phone]
--- OUTSIDE RECORDS SUMMARY | 2021-07-16 09:20 | CCD | Continuity of Care Document ---
Author Author Adama FELDMAN M.D. Organization Unknown Address [address] [place] [address] Phone [phone] Care Team Providers Care Urinalysis Technician Name Role Phone Ysabel MTZ M.D., Gordon Chaim UZIEL [phone] Problems Active Problems Provider Date Essential [...] CPT Code Status Date Vaccine Lot # [id number] Given 12/17/2020 Moderna Sars-(Co vid-19) vaccine, mRNA, LNP-S, PF, 100 mcg/ 0.5 mL 16667 Given 11/16/2020 Moderna Sars-(Co vid-19) vaccine, mRNA, LNP-S, PF, 100 mcg/ 0.5 mL [id number] Given 10/17/2019 Boostrix (Tdap) Tetnus, Diphtheria Toxoids & Acellular Pertussis [id number] [id number] Given 07/16/2015 TB Intradermal Test [id number] 80135 Given 12/11/2009 TB Intradermal Test [id number] 69877 Given 12/27/2007 TB Intradermal Test [id number] 38636 Refused 10/17/2019 Influenza Virus Vaccine, Pradepe drivalent,multidose vial Vital Signs Date Vital Result Comment 06/10/2021 7:17am BP Systolic 124 mmHg BP Diastolic 78 mmHg Heart Rate 66 /min Body Temperature 96.8 F Respiratory Rate 17 /min Height 67 inches 5'7" Weight 180.38 lb O2 % BldC Oximetry 98 % Peak Expiratory Flow Rate 475 Estimated Peak Flow Rate [place] Body Weight 148 lb BMI (Body Mass Index) 28.2 kg/m2 11/28/2020 7:40am BP Systolic 118 mmHg BP Diastolic 72 mmHg Heart Rate 52 /min Body Temperature 97.1 F Respiratory Rate 16 /min Height 67 inches 5'7" Weight 180.38 lb Peak Expiratory Flow Rate 475 Estimated Peak Flow Rate [place] Body Weight 148 lb BMI (Body Mass Index) 28.2 kg/m2 Results Test Acquired Date Facility Test Result H/L Range Note Cardiac Marker Panel 06/09/2021 Patient Service [facility] [place] [address] [phone] CPK Creatine Phosphokinase 151 U/L Normal 39-30 8 CK-MB Value Mass 1.9 NG/ML Normal <3.6 MB/CK Relative Index 1.26 Normal < Or =4 1 Troponin I < 0.02 NG/ML Normal < 0.10 2 PT & Aptt 06/09/2021 Patient Service [facility] [place] [address] [phone] Prothrombin Time 12.0 seconds Normal 12.7-14.5 Inr 0.85 Normal 3 Partial Thromboplastin Time 27.8 seconds Normal 25.9-37.0 CBC With Differential 06/09/2021 [place] [address] [phone] White Blood Count 8.9 10 Normal 4.0-10.0 [...] 36.0-66.0 Lymph % 14.8 % Low 24.0-44.0 [place] % 6.9 % Normal 2.0-8.0 Eos % 0.8 % Normal 0.0-3.0 Baso % 0.3 % Normal 0.0-1.0 Immature Granulocyte % 0.3 % Normal 0-3.0 Nucleated Red Blood Cell % 0.0 % Normal 0-0 Neutrophils # 6.8 10 Normal 1.5-8.5 Lymph # 1.3 10 Low 1.5-5.0 [place] # 0.6 10 Normal 0.0-0.8 Eos # 0.1 10 Normal 0.0-0.5 Baso # 0.0 10 Normal 0.0-0.2 Cardiac Marker Panel 06/09/[address] [place] [address] [phone] CPK Creatine Phosphokinase 176 U/L Normal 39-30 8 CK-MB Value Mass 1.5 NG/ML Normal <3.6 MB/CK Relative Index 0.85 Normal < Or =4 4 Troponin I < 0.02 NG/ML Normal < 0.10 5 Liver Profile 06/09/2021 Patient Service [facility] [place] [address] [phone] Ast/Sgot 18 U/L Normal 7-37 Alt/SGPT 29 U/L Normal 12-78 Alkaline Phosphatase 65 U/L Normal 45-117 Bilirubin,Total 0.3 mg/dL Normal 0.2-1.0 Bilirubin,Direct < 0.1 mg/dL Normal 0.0-0.2 Total Protein 6.8 GM/DL Normal 6.4-8.2 Albumin 4.1 GM/DL Normal 3.2-5.2 Albumin/Globulin Ratio 1.5 Normal Basic Metabolic Profile 06/09/2021 Patient Service [place] [id number] [phone] Glucose, Fasting 112 mg/dL High 70-100 Blood [...] Laboratory test finding 06/09/2021 [place] [address] [phone] Lipase 156 U/L Normal 73-393 1 DIAGNOSIS CRITERIA MMB ng/ml Relative Index (RI) NON-AMI < or = 5 N/A ARIAS ZONE > 5 < or = 4 AMI > 5 > 4 2 Troponin I Reference Interva l for Siemens [employer] LOCI: 99th Percentile= 0.00-0.045 ng/ml Risk Stratification: [...] 5 Troponin I Reference Interva l for Promuc LOCI: 99th Percentile= 0.00-0.045 ng/ml Risk Stratification: [...] Little GFR Left ESRD GFR <15 on [employer] Procedures Description No Information Available Medical Devices Description No Information Available Encounters Description No Information Available Assessments Description No Information Available Plan of Treatment No Information Available Functional Status Functional Condition Comment Date Status Bifocal glasses Active Independent with all ADL's Activ e Mental Status Mental Condition Comment Date Status None Active Referrals Description No Information Available
--- OUTSIDE RECORDS SUMMARY | 2021-07-16 09:20 | CCD ---
Author Author [facility] Organization [facility] Address Unknown Phone Unavailable Care Team Providers Care Char Conveyor Tender Name Role Phone Ryan, Nicky Mcmahon MD Unavailable Unavailable Ryan, Nicky Mcmahon MD Unavailable Unavailable Ryan, Nicky Mcmahon MD Unavailable Unavailable Ryan, Nicky Mcmahon MD Unavailable Unavailable Ryan, Nicky Mcmahon MD Unavailable Unavailable Ryan, Nicky Mcmahon MD Unavailable Unavailable Ryan, Nicky Mcmahon MD Unavailable Unavailable Ryan, Nicky Mcmahon MD Unavailable Unavailable Ryan, Nicky Mcmahon MD Unavailable Unavailable Ryan, Nicky Mcmahon MD Unavailable Unavailable Ryan, Nicky Mcmahon MD Unavailable Unavailable Ryan, Nicky Mcmahon MD Unavailable Unavailable Ryan, Nicky Mcmahon MD Unavailable Unavailable Ryan, Nicky Mcmahon MD Unavailable Unavailable Ryan, Nicky Mcmahon MD Unavailable Unavailable Ryan, Nicky Mcmahon MD Unavailable Unavailable Ryan, Nicky Mcmahon MD Unavailable Unavailable Ryan, Nicky Mcmahon MD Unavailable Unavailable Ryan, Nicky Mcmahon MD Unavailable Unavailable Ryan, Nicky Mcmahon MD Unavailable Unavailable Ryan, Nicky Mcmahon MD Unavailable Unavailable Ryan, Nicky Mcmahon MD Unavailable Unavailable Ryan, Nicky Mcmahon MD Unavailable Unavailable Ryan, Nicky Mcmahon MD Unavailable Unavailable Ryan, Nicky Mcmahon MD Unavailable Unavailable Ryan, Nicky Mcmahon MD Unavailable Unavailable Ryan, Nicky Mcmahon MD Unavailable Unavailable Ryan, Nicky Mcmahon MD Unavailable Unavailable Ryan, Nicky Mcmahon MD Unavailable Unavailable Ryan, Nicky Mcmahon MD Unavailable Unavailable Ryan, Nicky Mcmahon MD Unavailable Unavailable Ryan, Nicky Mcmahon MD Unavailable Unavailable Ryan, Nicky Mcmahon MD Unavailable Unavailable Ryan, Nicky Mcmahon MD Unavailable Unavailable Ryan, Nicky Mcmahon MD Unavailable Unavailable Ryan, Nicky Mcmahon MD Unavailable Unavailable Ryan, Nicky Mcmahon MD Unavailable Unavailable Ryan, Nicky Mcmahon MD Unavailable Unavailable Ryan, Nicky Mcmahon MD Unavailable Unavailable Ryan, Nicky Mcmahon MD Unavailable Unavailable Ryan, Nicky Mcmahon MD Unavailable Unavailable Ryan, Nicky Mcmahon MD Unavailable Unavailable Ryan, Nicky Mcmahon MD Unavailable Unavailable Ryan, Nicky Mcmahon MD Unavailable Unavailable Ryan, Nicky Mcmahon MD Unavailable Unavailable Ryan, Nicky Mcmahon MD Unavailable Unavailable Ryan, Nicky Mcmahon MD Unavailable Unavailable Ryan, Nicky Mcmahon MD Unavailable Unavailable Ryan, Nicky Mcmahon MD Unavailable Unavailable Ryan, Nicky Mcmahon MD Unavailable Unavailable Ryan, Nicky Mcmahon MD Unavailable Unavailable Ryan, Nicky Mcmahon MD Unavailable Unavailable Ryan, Nicky Mcmahon MD Unavailable Unavailable Ryan, Nicky Mcmahon MD Unavailable Unavailable Ryan, Nicky Mcmahon MD Unavailable Unavailable Ryan, Nicky Mcmahon MD Unavailable Unavailable Ryan, Nicky Mcmahon MD Unavailable Unavailable Ryan, A Salome GUTIERREZ Unavailable Unavailable Ryan, A Salome GUTIERREZ Unavailable Unavailable Ryan, A Salome GUTIERREZ Unavailable Unavailable Ryan, A Salome GUTIERREZ Unavailable Unavailable Ryan, Nicky Mcmahon MD Unavailable Unavailable Ryan, Nicky Mcmahon MD Unavailable Unavailable Ryan, Nicky Mcmahon MD Unavailable Unavailable Ryan, Nicky Mcmahon MD Unavailable Unavailable Ryan, A Salome GUTIERREZ Unavailable Unavailable Ryan, Nicky Mcmahon MD Unavailable Unavailable Ryan, A Salome GUTIERREZ Unavailable Unavailable Ryan, Nicky Mcmahon MD Unavailable Unavailable Ryan, Nicky Mcmahon MD Unavailable Unavailable Ryan, Nicky Mcmahon MD Unavailable Unavailable Ryan, Nicky Mcmahon MD Unavailable Unavailable Ryan, Nicky Mcmahon MD Unavailable Unavailable Ryan, Nicky Mcmahon MD Unavailable Unavailable Ryan, Nicky Mcmahon MD Unavailable Unavailable Ryna, Nicky Mcmahon MD Unavailable Unavailable Ryan, Nicky Mcmahon MD Unavailable Unavailable Ryan, Nicky Mcmahon MD Unavailable Unavailable Ryan, Nicky Mcmahon MD Unavailable Unavailable Ryan, Nicky Mcmahon MD Unavailable Unavailable Ryan, Nicky Mcmahon MD Unavailable Unavailable Ryan, Nicky Mcmahon MD Unavailable Unavailable Chaim Grady JR, MD Unavailable Unavailable Chaim Grady JR, MD Unavailable Unavailable Chaim Grady JR, MD Unavailable Unavailable Chaim Grady JR, MD Unavailable Unavailable Chaim Grady JR, MD Unavailable Unavailable Chaim Grayd JR, MD Unavailable Unavailable Chaim Grady JR, MD Unavailable Unavailable Chaim Grady JR, MD Unavailable Unavailable Chaim Grady JR, MD Unavailable Unavailable Chaim Grady JR, MD Unavailable Unavailable Chaim Grady JR, MD Unavailable Unavailable Chaim Grady JR, MD Unavailable Unavailable Chaim Grady JR, MD Unavailable Unavailable Chaim Grady JR, MD Unavailable Unavailable Chaim Grady JR, MD Unavailable Unavailable Chaim Grady JR, MD Unavailable Unavailable Ysabel JR, J Gordon MD Unavailable Unavailable Ysabel JR, J Gordon MD Unavailable Unavailable Ysabel JR, J Gordon MD Unavailable Unavailable Ysabel JR, J Gordon MD Unavailable Unavailable Ysabel JR, J Gordon MD Unavailable Unavailable Ysabel JR, J Gordon MD Unavailable Unavailable Ysabel JR, J Gordon MD Unavailable Unavailable Ysabel JR, J Gordon MD Unavailable Unavailable Ysabel JR, J Gordon MD Unavailable Unavailable Ysabel JR, J Gordon MD Unavailable Unavailable Ysabel JR, J Gordon MD Unavailable Unavailable Ysabel JR, J Gordon MD Unavailable Unavailable Ysabel JR, J Gordon MD Unavailable Unavailable Ysabel JR, J Gordon MD Unavailable Unavailable Ysabel JR, J Gordon MD Unavailable Unavailable Ysabel JR, J Gordon MD Unavailable Unavailable Ysabel JR, J Gordon MD Unavailable Unavailable Ysabel JR, J Gordon MD Unavailable Unavailable Ysabel JR, J Gordon MD Unavailable Unavailable Ysabel JR, J Gordon MD Unavailable Unavailable Ysabel JR, J Gordon MD Unavailable Unavailable Ysabel JR, J Gordon MD Unavailable Unavailable Ysabel JR, J Gordon MD Unavailable Unavailable Ysabel JR, J Gordon MD Unavailable Unavailable Ysabel JR, J Gordon MD Unavailable Unavailable Ysabel JR, J Gordon MD Unavailable Unavailable Ysabel JR, J Gordon MD Unavailable Unavailable Ysabel JR, J Gordon MD Unavailable Unavailable Yasbel JR, J Gordon MD Unavailable Unavailable Ysabel JR, J Gordon MD Unavailable Unavailable Ysabel JR, J Gordon MD Unavailable Unavailable Ysabel JR, J Gordon MD Unavailable Unavailable Ysabel JR, J Gordon MD Unavailable Unavailable Ysabel JR, J Gordon MD Unavailable Unavailable Ysabel JR, J Gordon MD Unavailable Unavailable Ysabel JR, J Gordon MD Unavailable Unavailable Ysabel JR, J Gordon MD Unavailable Unavailable Ysabel JR, J Gordon MD Unavailable Unavailable Re-disclosure Warning The records that you are about to access may contain information from federally-assisted alcohol or drug abuse programs. If such information is present, then the following federally mandated warning applies: This information has been disclosed to you from records protected by federal confidentiality rules (42 CFR part 2). The federal rules prohibit you from making any further disclosure of this information unless further disclosure is expressly permitted by the written consent of the person to whom it pertains or as otherwise permitted by 42 CFR part 2. A general authorization for the release of medical or other information is NOT sufficient for this purpose. The Federal rules restrict any use of the information to criminally investigate or prosecute any alcohol or drug abuse patient.The records that you are about to access may contain highly sensitive health information, the redisclosure of which is protected by Article 27-F of the [facility] Public Health law. If you continue you may have access to information: Regarding HIV / AIDS; Provided by facilities licensed or operated by the [facility] Office of Mental Health; or Provided by the [facility] Office for People With Developmental Disabilities. If such information is present, then the following [facility] mandated warning applies: This information has been disclosed to you from confidential records which are protected by state law. State law prohibits you from making any further disclosure of this information without the specific written consent of the person to whom it pertains, or as otherwise permitted by law. Any unauthorized further disclosure in violation of state law may result in a fine or penitentiary sentence or both. A general authorization for the release of medical or other information is NOT sufficient authorization for further disc losure. Family History Family Member Name Family Member Gender Family Member Status Date o f Status Description Data Source(s) Unknown Unknown Problem [facility] ([facility] Unknown Unknown Problem [facility], [facility]) father Encounters Encounter Providers Location Date Indications Data Source(s ) Outpatient Attender: Gordon Vogel/Cherelle/Rizwan/Devonte dl 06/19/2021 01:30:00 PM EDT [facility] ([facility] Outpatient Attender: Salome Davis MD Main Office 06/10/2021 07:15:0 0 AM EDT [facility] ([facility] Outpatient Attender: Salome Davis MD Main Office 11/28/2020 07:30:0 0 AM EDT [facility] ([facility] Outpatient Attender: Salome Davis MD Main Office 05/28/2020 02:15:0 0 PM EDT [facility] ([facility] Immunizations Vaccine Date Status Description Data Source(s) Moderna Sars-(Covid-19) vaccine, mRNA, LNP-S, PF, 100 mcg/ 0.5 mL 12/17/2020 12:00:00 AM EDT completed [facility] ([facility] COVID-19 VACCINE Moderna 12/17/2020 12:00:00 AM EDT completed [facility] Vaccine Series Complete: YESThis Data wa s Submitted to [facility] Via [facility]. Moderna Sars-(Covid-19) vaccine, mRNA, LNP-S, PF, 100 mcg/ 0.5 mL 11/16/2020 06:38:00 AM EST completed [facility] ([facility] COVID-19 VACCINE Moderna 11/16/2020 12:00:00 AM EST completed [facility] Vaccine Series Complete: NOThis Data was Submitted to [facility] Via [employer]. Moderna Sars-(Covid-19) vaccine, mRNA, LNP-S, PF, 100 mcg/ 0.5 mL 11/15/2020 11:00:00 PM EST completed [facility] ([facility] Medications Medication Brand Name Start Date Product Form Dose Route Admi nistrative Instructions Pharmacy Instructions Status Indications Reaction Description Data Source(s) Amoxicillin 500 MG / Clavulanate 125 MG Oral Tablet [Augment in] Augmentin 06/19/2021 12:00:00 AM EDT ORAL active [facility] ([facility], ) Insurance Providers Payer name Policy type / Coverage type Policy ID Covered republican ID Covered republican's relationship to cortez Policy Cortez Plan Information [facility] [id number] SP 80 [id number] [facility] [id number] SP [id number] [facility] O [id number] S [id number] [facility] (pr) Commercial [id number] [facility] Health Care Commercial [id number] Family Dependent [facility] Health Care Commercial [id number] Family Dependent [id number] [facility] Commercial [id number] Self [id number] Problems, Conditions, and Diagnoses Code Display Name Description Problem Type Effective Dates Data Source(s) [id number] Essential hypertension Essential hypertension Problem 06/19/2021 12:00:00 AM EDT [facility] ([facility]) Surgeries/Procedures Procedure Description Date Indications Data Source(s) OFFICE OUTPATIENT NEW 45 MINUTES 06/19/2021 12:00:00 A M EDT [facility] ([facility], ) PERIODIC PREVENTIVE MED EST PATIENT 40-64YRS 12:00:00 AM EDT [facility] ([facility] Results ID Date Data Source [id number] 07/11/2021 11:25:00 AM EDT [facility] Name Value Range Interpretation Code Description Data Renetta rce(s) Supporting Document(s) SARS-CoV-2 (COVID-19) RNA [Presence] in Respiratory specimen by DOUG with probe detection Not Detected [facility] This lab was ordered by [facility] and reported by [facility] ID Date Data Source [id number] 07/11/2021 11:25:00 AM EDT [facility] ([facility] Name Value Range Interpretation Code Description Data Renetta rce(s) Supporting Document(s) Coronavirus 2019 Nasopharygeal Laboratory test result [facility] ([facility] ASSAY INFORMATION: Real Time RT-PCR NOTE: The COVID-19 assay has been cleared by the U.S. Food and Drug Administration under the Emergency Use Authorization (EUA). [facility] and [facility] are designated as high complexity laboratories by the Clinical Laboratory Improvement Amendments of 1988(CLIA) and are qualified to perform this test. Not Detected ID Date Data Source [id number] 06/09/2021 04:06:00 AM EDT [facility] ([facility] Name Value Range Interpretation Code Description Data Renetta rce(s) Supporting Document(s) CPK Creatine Phosphokinase 151 U/L 39-308 [facility] ([facility] CK-MB Value Mass 1.9 ng/mL [facility] ([facility] MB/CK Relative Index 1.26 [facility] ([facility] <content>DIAGNOSIS CRITERIA</content>
<content>MMB ng/ml Relative Index (RI)</content>
<content>NON-AMI < or = 5 N/A</content>
<content>ARIAS ZONE > 5 < or = 4</content>
<content>AMI > 5 > 4</content>
<content></content> Troponin I Laboratory test result [facility] ([facility] <content>Troponin I Reference Interval f or [employer] [place] LOCI:</content>
<content></content>
<content>99th Percentile= 0.00-0.045 ng/ml</content>
<content></content>
<content>Risk Stratification:</content>
<content><= 0.10 ng/ml Decreased Risk for Adverse Clinical</content>
<content>Events.</content>
<content>0.10-1.50 ng/ml Increased Risk for Adverse Clinical</content>
<content>Events. Evaluation of additional</content>
<content>criterion and/or repeat testing in 2-6</content>
<content>hours is suggested to rule out myocardial</content>
<content>damage.</content>
<content>>= 1.50 ng/ml Indicative of Myocardial Injury.</content>
<content></content> ID Date Data Source [id number] 06/09/2021 12:58:00 AM EDT [facility] ([facility] Name Value Range Interpretation Code Description Data Renetta rce(s) Supporting Document(s) Prothrombin Time 12.0 s 12.7-14.5 [facility] ([facility] Inr 0.85 [facility] ([facility] THERAPUTIC HUMAN INR VALUES INDICATIONS NORMAL RANGES PROPHYLAXIS/TREATMENT OF: VENOUS THROMBOSIS 2.0-3.0 PULMONARY EMBOLISM 2.0-3.0 PREVENTION OF SYSTEMIC EMBOLISM FROM: TISSUE HEART VALVES 2.0-3.0 ACUTE MYOCARDIAL INFARCTION 2.0-3.0 VALVULAR HEART DISEASE 2.0-3.0 ATRIAL FIBRILLATION 2.0-3.0 MECHANICAL VALVES(HIGH RISK) 2.5-3.5 RECURRENT MYOCARDIAL INFARCTION 2.5-3.5 Partial Thromboplastin Time 27.8 s 25.9-37.0 [facility] ([facility] ID Date Data Source [id number] 06/09/2021 12:43:00 AM EDT [facility] ([facility] Name Value Range Interpretation Code Description Data Renetta rce(s) Supporting Document(s) Lipoprotein lipase [Enzymatic activity/volume] in Serum or P lasma 156 U/L 73-393 [facility] ([facility] ID Date Data Source [id number] 06/09/2021 12:43:00 AM EDT [facility] ([facility] Name Value Range Interpretation Code Description Data [facility](s) Supporting Document(s) Glucose, Fasting 112 mg/dL 70-100 [facility] ([facility] Blood Urea Nitrogen 18 mg/dL 7-18 [facility] ([facility] Glomerular Filtration Rate Laboratory test result [facility] ([facility] <content>Units are mL/min/1.73 m2</content>
<content></content>
<content>Chronic Kidney Disease Staging per NKF:</content>
<content></content>
<content>Stage I & II GFR >=60 Normal to Mildly Decreased</content>
<content>Stage III GFR 30-59 Moderately Decreased</content>
<content>Stage IV GFR 15-29 Severely Decreased</content>
<content>Stage V GFR <15 Very Little GFR Left</content>
<content>ESRD GFR <15 on PREPPER</content>
<content></content> Creatinine For GFR 1.11 mg/dL 0.70-1.30 [facility] ([facility] Chloride Level 107 meq/L 98-107 [facility] ([facility] Sodium Level 140 meq/L 136-145 [facility] ([facility] Potassium Serum 4.1 meq/L 3.5-5.1 [facility] ([facility] Carbon Dioxide Level 29 meq/L 21-32 [facility] ([facility] Anion Gap 4 meq/L 8-16 [facility] ([facility] Calcium Level 8.7 mg/dL 8.8-10.2 [facility] ([facility] ID Date Data Source [id number] 06/09/2021 12:43:00 AM EDT [facility] ([facility] Name Value Range Interpretation Code Description Data Renetta rce(s) Supporting Document(s) Ast/Sgot 18 U/L 7-37 [facility] ([facility] Alt/SGPT 29 U/L 12-78 [facility] Alkaline Phosphatase 65 U/L 45-117 [facility] ([facility] Bilirubin,Direct Laboratory test result 0.0-0.2 [facility] ([facility] Bilirubin,Total 0.3 mg/dL 0.2-1.0 [facility] ([facility] Albumin 4.1 GM/DL 3.2-5.2 [facility] ([facility] Total Protein 6.8 GM/DL 6.4-8.2 [facility] ([facility] Albumin/Globulin Ratio 1.5 [facility] ([facility] ID Date Data Source [id number] 06/09/2021 12:43:00 AM EDT [facility] ([facility] Name Value Range Interpretation Code Description Data Renetta rce(s) Supporting Document(s) CPK Creatine Phosphokinase 176 U/L 39-308 [facility] ([facility] CK-MB Value Mass 1.5 ng/mL [facility] ([facility] MB/CK Relative Index 0.85 [facility] ([facility] <content>DIAGNOSIS CRITERIA</content>
<content>MMB ng/ml Relative Index (RI)</content>
<content>NON-AMI < or = 5 N/A</content>
<content>ARIAS ZONE > 5 < or = 4</content>
<content>AMI > 5 > 4</content>
<content></content> Troponin I Laboratory test result [facility] ([facility] <content>Troponin I Reference Interval f or [employer] [place] LOCI:</content>
<content></content>
<content>99th Percentile= 0.00-0.045 ng/ml</content>
<content></content>
<content>Risk Stratification:</content>
<content><= 0.10 ng/ml Decreased Risk for Adverse Clinical</content>
<content>Events.</content>
<content>0.10-1.50 ng/ml Increased Risk for Adverse Clinical</content>
<content>Events. Evaluation of additional</content>
<content>criterion and/or repeat testing in 2-6</content>
<content>hours is suggested to rule out myocardial</content>
<content>damage.</content>
<content>>= 1.50 ng/ml Indicative of Myocardial Injury.</content>
<content></content> ID Date Data Source [id number] 06/09/2021 12:43:00 AM EDT [facility] ([facility] Name Value Range Interpretation Code Description Data Renetta rce(s) Supporting Document(s) White Blood Count 8.9 10 4.0-10.0 [facility] ([facility] Hemoglobin 14.9 g/dL 13.5-17.5 [facility] ([facility] Red Blood Count 4.76 10 4.30-6.10 [facility] ([facility] Mean Corpuscular Volume 88.0 fl 80.0-96.0 M [facility] ([facility] Hematocrit 41.9 % 42.0-52.0 [facility] ([facility] Mean Corpuscular Hemoglobin 31.3 pg 27.0-33.0 [facility] ([facility] Mean Corpuscular HGB Conc 35.6 g/dL 32.0-36.5 [facility] ([facility] Red Cell Distribution Width 11.5 % 11.5-14.5 [facility] ([facility] Lymph % 14.8 % 24.0-44.0 [facility] ([facility] Platelet Count, Automated 222 10 150-450 [facility] ([facility] Neutrophils % 76.9 % 36.0-66.0 [facility] ([facility] Eos % 0.8 % 0.0-3.0 [facility] [place] % 6.9 % 2.0-8.0 [facility] ([facility] Baso % 0.3 % 0.0-1.0 [facility] ([facility] Nucleated Red Blood Cell % 0.0 % 0-0 [facility] ([facility] Immature Granulocyte % 0.3 % 0-3.0 [facility] ([facility] Lymph # 1.3 10 1.5-5.0 [facility] ([facility] Neutrophils # 6.8 10 1.5-8.5 [facility] ([facility] Eos # 0.1 10 0.0-0.5 [facility] [place] # 0.6 10 0.0-0.8 [facility] ([facility] Baso # 0.0 10 0.0-0.2 [facility] ([facility] ID Date Data Source [id number] 11/29/2020 04:05:00 AM EDT [facility] Name Value Range Interpretation Code Description Data Renetta rce(s) Supporting Document(s) WBC 4.7 x10E3/uL 3.4-10.8 [facility] RBC 5.06 x10E6/uL 4.14-5.80 [facility] Hemoglobin 15.8 g/dL 13.0-17.7 [facility] Hematocrit 45.8 % 37.5-51.0 [facility] MCV 91 fL 79-97 [facility] MCH 31.2 pg 26.6-33.0 [facility] MCHC 34.5 g/dL 31.5-35.7 [facility] RDW 12.6 % 11.6-15.4 [facility] Platelets 274 x10E3/uL 150-450 [facility] Neutrophils 56 % Not Estab. [facility] Lymphs 31 % Not Estab. [facility] Monocytes 10 % Not Estab. [facility] Eos 2 % Not Estab. [facility] Basos 1 % Not Estab. [facility] Neutrophils (Absolute) 2.6 x10E3/uL 1.4-7.0 [facility] Lymphs (Absolute) 1.4 x10E3/uL 0.7-3.1 [facility] Monocytes(Absolute) 0.5 x10E3/uL 0.1-0.9 [facility] Eos (Absolute) 0.1 x10E3/uL 0.0-0.4 [facility] Baso (Absolute) 0.0 x10E3/uL 0.0-0.2 [facility] Immature Granulocytes 0 % Not Estab. [facility] Immature Grans (Abs) 0.0 x10E3/uL 0.0-0.1 [facility] ID Date Data Source [id number] 11/29/2020 06:06:00 AM EDT [facility] Name Value Range Interpretation Code Description Data Renetta rce(s) Supporting Document(s) Glucose 93 mg/dL 65-99 [facility] BUN 15 mg/dL 8-27 [facility] Creatinine 0.93 mg/dL 0.76-1.27 [facility] eGFR If NonAfricn Am 89 mL/min/1.73 >59 [facility] eGFR If Africn Am 103 mL/min/1.73 >59 [facility] BUN/Creatinine Ratio 16 10-24 [facility] Sodium 140 mmol/L 134-144 [facility] Potassium 5.0 mmol/L 3.5-5.2 [facility] Chloride 103 mmol/L 96-106 [facility] Carbon Dioxide, Total 26 mmol/L 20-29 [facility] Calcium 9.7 mg/dL 8.6-10.2 [facility] Protein, Total 6.8 g/dL 6.0-8.5 [facility] Albumin 4.7 g/dL 3.8-4.9 [facility] Globulin, Total 2.1 g/dL 1.5-4.5 [facility] A/G Ratio 2.2 1.2-2.2 [facility] Bilirubin, Total 0.6 mg/dL 0.0-1.2 [facility] Alkaline Phosphatase 63 IU/L 39-117 [facility] AST (SGOT) 23 IU/L 0-40 [facility] ALT (SGPT) 26 IU/L 0-44 [facility] ID Date Data Source [id number] 11/29/2020 08:08:00 AM EDT [facility] Name Value Range Interpretation Code Description Data Renetta rce(s) Supporting Document(s) Prostate Specific Ag, Serum 2.4 ng/mL 0.0-4.0 [facility] ECLIA methodology. According to th e [place] [employer], Serum PSA shoulddecrease and remain at undetectable levels after radicalprostatectomy. The AUA defines biochemical recurrence as an initialPSA value 0.2 ng/mL or greater followed by a subsequent confirmatoryPSA value 0.2 ng/mL or greater.Values obtained with different assay methods or kits cannot be usedinterchangeably. Results cannot be interpreted as absolute evidenceof the presence or absence of malignant disease. ID Date Data Source [id number] 11/29/2020 06:06:00 AM EDT [facility] Name Value Range Interpretation Code Description Data Renetta rce(s) Supporting Document(s) Cholesterol, Total 217 mg/dL 100-199 Above high normal [facility] Triglycerides 60 mg/dL 0-149 [facility] HDL Cholesterol 62 mg/dL >39 [facility] VLDL Cholesterol Guillermo 11 mg/dL 5-40 [facility] LDL Chol Calc (NIH) 144 mg/dL 0-99 Above high normal [facility] Procedure Social History Code Duration Value Status Description Data Source(s ) Smoking 06/10/2021 12:00:00 AM EDT - 09/07/2005 12:00:00 AM EST Patient is a former smoker completed Patient is a former smoker [facility] ([facility] Vital Signs ID Date Data Source UNK Name Value Range Interpretation Code Description Data Source(s) Body temperature 98.3 [degF] 98.3 [degF] [facility] ([facility]) Body weight 80.911 kg 80.911 [facility] [place] body weight 142 [lb_av] 142 [lb_av] [facility] T ([facility]) Body surface area Derived from formula 1.90 m2 1.90 m2 [facility] ([facility]) Systolic blood pressure 158 mm[Hg] 158 mm[Hg] M [facility] ([facility]) Diastolic blood pressure 10 mm[Hg] 10 mm[Hg] [facility] ([facility]) Heart rate 54 /min 54 /min [facility] ([facility]) Body height 66 [in_i] 66 [in_i] [facility] ([facility]) 5'6" Body weight 178.38 [lb_av] 178.38 [lb_av] [facility] T ([facility] [facility]) Body mass index (BMI) [Ratio] 28.8 kg/m2 28.8 k g/m2 [facility] Body mass index (BMI) [Ratio] 28.2 kg/m2 28.2 k g/m2 [facility] Systolic blood pressure 124 mm[Hg] 124 mm[Hg] [facility] Diastolic blood pressure 78 mm[Hg] 78 mm[Hg] [facility] Heart rate 66 /min 66 /min [facility] Body temperature 96.8 [degF] 96.8 [degF] [facility] Respiratory rate 17 /min 17 /min [facility] ( [facility] Body height 67 [in_i] 67 [in_i] [facility] ([facility] 5'7" Body weight 180.38 [lb_av] 180.38 [lb_av] [facility] T ([facility] Oxygen saturation in Arterial blood by Pulse oximetry 98 % 98 % [facility] [place] body weight 148 [lb_av] 148 [lb_av] [facility] ([facility] Diastolic blood pressure 72 mm[Hg] 72 mm[Hg] [facility] Heart rate 52 /min 52 /min [facility] Body weight 180.38 [lb_av] 180.38 [lb_av] [facility] ([facility] [place] body weight 148 [lb_av] 148 [lb_av] [facility] ([facility] Body mass index (BMI) [Ratio] 28.2 kg/m2 28.2 k g/m2 [facility] Systolic blood pressure 118 mm[Hg] 118 mm[Hg] [facility] ([facility] Body temperature 97.1 [degF] 97.1 [degF] [facility] Respiratory rate 16 /min 16 /min [facility] ( [facility] Body height 67 [in_i] 67 [in_i] [facility] 5'7" Systolic blood pressure 132 mm[Hg] 132 mm[Hg] [facility] Oxygen saturation in Arterial blood by Pulse oximetry 98 % 98 % [facility] Diastolic blood pressure 82 mm[Hg] 82 mm[Hg] [facility] Heart rate 75 /min 75 /min [facility] Body temperature 97.4 [degF] 97.4 [degF] [facility] Respiratory rate 16 /min 16 /min [facility] ( [facility] Body height 67 [in_i] 67 [in_i] [facility] 5'7" Body weight 182.38 [lb_av] 182.38 [lb_av] [facility] ([facility] [place] body weight 148 [lb_av] 148 [lb_av] [facility] Body mass index (BMI) [Ratio] 28.6 kg/m2 28.6 k g/m2 [facility]
--- OUTSIDE RECORDS SUMMARY | 2021-07-16 09:20 | CCD | Continuity of Care Document ---
Author Author Adama GRADY MD Organization Unknown Address [address] [facility] [address] [place] [address] Phone [phone] Care Team Providers Care Environmental Technology Professor Name Role Phone Salome Davis M.D. [facility] [phone] Problems Active Problems Provider Date Essential hypertension [...] lb BMI (Body Mass Index) 28.8 kg/m2 [place] Body Weight 142 lb Weight 80.911 kg BSA (Body Surface Area) 1.90 m2 Results Description No Information Available Procedures Description No Information Available Medical Devices Description No Information Available Encounters Description No Information Available Assessments Description No Information Available Plan of Treatment Future Appointment(s):* 07/24/2021 8:45 am - Gordon Grady JR, MD at [facility] * 07/16/2021 1:45 pm - Gordon Grady JR, MD at [facility] Functional Status Description No Information Available Mental Status Description No Information Available Referrals Refer to Reason for Referral Status Appt Date Gordon Grady JR, MD GALLBLADDER/COLONOSCOPY Scheduled 06/19/[address] [address] [phone]
--- OUTSIDE RECORDS SUMMARY | 2021-07-16 09:20 | CCD | Continuity of Care Document ---
Author Author Adama GRADY MD Organization Unknown Address [address] [facility] [address] [place] [address] Phone [phone] Care Team Providers Care Electric Scoop Operator Name Role Phone Salome Davis M.D. [facility] [phone] Problems Active Problems Provider Date Essential hypertension [...] lb BMI (Body Mass Index) 28.8 kg/m2 [place] Body Weight 142 lb Weight 80.911 kg BSA (Body Surface Area) 1.90 m2 Results Description No Information Available Procedures Description No Information Available Medical Devices Description No Information Available Encounters Description No Information Available Assessments Description No Information Available Plan of Treatment Future Appointment(s):* 07/24/2021 8:45 am - Gordon Grady JR, MD at [facility] [place] * 07/16/2021 1:45 pm - Gordon Grady JR, MD at [facility] [place] Functional Status Description No Information Available Mental Status Description No Information Available Referrals Refer to Reason for Referral Status Appt Date Gordon Grady JR, MD GALLBLADDER/COLONOSCOPY Scheduled 06/19/[address] [address] [phone]
--- OUTSIDE RECORDS SUMMARY | 2021-07-16 09:20 | CCD | Continuity of Care Document ---
Author Author Adama FELDMAN M.D. Organization Unknown Address [address] [place] [address] Phone [phone] Care Team Providers Care Etl Programmer Name Role Phone Ysabel MTZ M.D., Gordon Chaim UZIEL [phone] Problems Active Problems Provider Date Essential [...] CPT Code Status Date Vaccine Lot # [id number] Given 12/17/2020 Moderna Sars-(Co vid-19) vaccine, mRNA, LNP-S, PF, 100 mcg/ 0.5 mL 12296 Given 11/16/2020 Moderna Sars-(Co vid-19) vaccine, mRNA, LNP-S, PF, 100 mcg/ 0.5 mL 13227 Given 10/17/2019 Boostrix (Tdap) Tetnus, Diphtheria Toxoids & Acellular Pertussis [id number] 77026 Given 07/16/2015 TB Intradermal Test [id number] 18052 Given 12/11/2009 TB Intradermal Test 02012 94986 Given 12/27/2007 TB Intradermal Test [id number] 11048 Refused 10/17/2019 Influenza Virus Vaccine, Pradeep drivalent,multidose vial Vital Signs Date Vital Result Comment 06/10/2021 7:17am BP Systolic 124 mmHg BP Diastolic 78 mmHg Heart Rate 66 /min Body Temperature 96.8 F Respiratory Rate 17 /min Height 67 inches 5'7" Weight 180.38 lb O2 % BldC Oximetry 98 % Peak Expiratory Flow Rate 475 Estimated Peak Flow Rate [place] Body Weight 148 lb BMI (Body Mass Index) 28.2 kg/m2 11/28/2020 7:40am BP Systolic 118 mmHg BP Diastolic 72 mmHg Heart Rate 52 /min Body Temperature 97.1 F Respiratory Rate 16 /min Height 67 inches 5'7" Weight 180.38 lb Peak Expiratory Flow Rate 475 Estimated Peak Flow Rate [place] Body Weight 148 lb BMI (Body Mass Index) 28.2 kg/m2 Results Test Acquired Date Facility Test Result H/L Range Note Cardiac Marker Panel 06/09/2021 Patient Service [facility] [place] [address] [phone] CPK Creatine Phosphokinase 151 U/L Normal 39-30 8 CK-MB Value Mass 1.9 NG/ML Normal <3.6 MB/CK Relative Index 1.26 Normal < Or =4 1 Troponin I < 0.02 NG/ML Normal < 0.10 2 PT & Aptt 06/09/2021 Patient Service [facility] [place] [address] [phone] Prothrombin Time 12.0 seconds Normal 12.7-14.5 Inr 0.85 Normal 3 Partial Thromboplastin Time 27.8 seconds Normal 25.9-37.0 CBC With Differential 06/09/2021 [place] [address] [phone] White Blood Count 8.9 10 Normal 4.0-10.0 [...] 36.0-66.0 Lymph % 14.8 % Low 24.0-44.0 [place] % 6.9 % Normal 2.0-8.0 Eos % 0.8 % Normal 0.0-3.0 Baso % 0.3 % Normal 0.0-1.0 Immature Granulocyte % 0.3 % Normal 0-3.0 Nucleated Red Blood Cell % 0.0 % Normal 0-0 Neutrophils # 6.8 10 Normal 1.5-8.5 Lymph # 1.3 10 Low 1.5-5.0 [place] # 0.6 10 Normal 0.0-0.8 Eos # 0.1 10 Normal 0.0-0.5 Baso # 0.0 10 Normal 0.0-0.2 Cardiac Marker Panel 06/09/[address] [place] [address] [phone] CPK Creatine Phosphokinase 176 U/L Normal 39-30 8 CK-MB Value Mass 1.5 NG/ML Normal <3.6 MB/CK Relative Index 0.85 Normal < Or =4 4 Troponin I < 0.02 NG/ML Normal < 0.10 5 Liver Profile 06/09/2021 Patient Service [facility] [place] [address] [phone] Ast/Sgot 18 U/L Normal 7-37 Alt/SGPT 29 U/L Normal 12-78 Alkaline Phosphatase 65 U/L Normal 45-117 Bilirubin,Total 0.3 mg/dL Normal 0.2-1.0 Bilirubin,Direct < 0.1 mg/dL Normal 0.0-0.2 Total Protein 6.8 GM/DL Normal 6.4-8.2 Albumin 4.1 GM/DL Normal 3.2-5.2 Albumin/Globulin Ratio 1.5 Normal Basic Metabolic Profile 06/09/2021 Patient Service [place] [id number] [phone] Glucose, Fasting 112 mg/dL High 70-100 Blood [...] Laboratory test finding 06/09/2021 [place] [address] [phone] Lipase 156 U/L Normal 73-393 1 DIAGNOSIS CRITERIA MMB ng/ml Relative Index (RI) NON-AMI < or = 5 N/A ARIAS ZONE > 5 < or = 4 AMI > 5 > 4 2 Troponin I Reference Interva l for Siemens [employer] LOCI: 99th Percentile= 0.00-0.045 ng/ml Risk Stratification: [...] 5 Troponin I Reference Interva l for [employer] [place] LOCI: 99th Percentile= 0.00-0.045 ng/ml Risk Stratification: [...] Little GFR Left ESRD GFR <15 on BUSINESS SYSTEM CONSULTANT Procedures Description No Information Available Medical Devices Description No Information Available Encounters Description No Information Available Assessments Date Code Description Provider 06/10/2021 I10 Essential (primary) hypertension Salome Feldman M.D. 06/10/2021 F52.21 Male erectile disorder Salome Feldman M.D. 06/10/2021 Z00.00 Encounter for genera adult medical examination without abnormal findings Salome [...] for general adult medical examination without abnormal findings * K80.80 Other cholelithiasis without obstruction Functional Status Functional Condition Comment Date Status Bifocal glasses Active Independent with all ADL's Activ e Mental Status Mental Condition Comment Date Status None Active Referrals Description No Information Available
--- OUTSIDE RECORDS SUMMARY | 2021-07-16 09:20 | CCD | Continuity of Care Document ---
Author Author Adama FELDMAN M.D. Organization Unknown Address [address] [place] [address] Phone [phone] Care Team Providers Care Operating Engineer Name Role Phone sYabel MTZ M.D., Gordon Chaim UZIEL Problems Active Problems Provider Date Essential hypertension [...] CPT Code Status Date Vaccine Lot # [id number] Given 12/17/2020 Moderna Sars-(Co vid-19) vaccine, mRNA, LNP-S, PF, 100 mcg/ 0.5 mL 47647 Given 11/16/2020 Moderna Sars-(Co vid-19) vaccine, mRNA, LNP-S, PF, 100 mcg/ 0.5 mL 95648 Given 10/17/2019 Boostrix (Tdap) Tetnus, Diphtheria Toxoids & Acellular Pertussis [id number] 63418 Given 07/16/2015 TB Intradermal Test [id number] 99201 Given 12/11/2009 TB Intradermal Test 96338 00389 Given 12/27/2007 TB Intradermal Test [id number] 37130 Refused 10/17/2019 Influenza Virus Vaccine, Pradeep drivalent,multidose vial Vital Signs Date Vital Result Comment 06/10/2021 7:17am BP Systolic 124 mmHg BP Diastolic 78 mmHg Heart Rate 66 /min Body Temperature 96.8 F Respiratory Rate 17 /min Height 67 inches 5'7" Weight 180.38 lb O2 % BldC Oximetry 98 % Peak Expiratory Flow Rate 475 Estimated Peak Flow Rate [place] Body Weight 148 lb BMI (Body Mass Index) 28.2 kg/m2 11/28/2020 7:40am BP Systolic 118 mmHg BP Diastolic 72 mmHg Heart Rate 52 /min Body Temperature 97.1 F Respiratory Rate 16 /min Height 67 inches 5'7" Weight 180.38 lb Peak Expiratory Flow Rate 475 Estimated Peak Flow Rate [place] Body Weight 148 lb BMI (Body Mass Index) 28.2 kg/m2 Results Test Acquired Date Facility Test Result H/L Range Note Cardiac Marker Panel 06/09/2021 Patient Service [facility] [place] [address] [phone] CPK Creatine Phosphokinase 151 U/L Normal 39-30 8 CK-MB Value Mass 1.9 NG/ML Normal <3.6 MB/CK Relative Index 1.26 Normal < Or =4 1 Troponin I < 0.02 NG/ML Normal < 0.10 2 PT & Aptt 06/09/2021 Patient Service [facility] [place] [address] [phone] Prothrombin Time 12.0 seconds Normal 12.7-14.5 Inr 0.85 Normal 3 Partial Thromboplastin Time 27.8 seconds Normal 25.9-37.0 CBC With Differential 06/09/2021 [place] [address] [phone] White Blood Count 8.9 10 Normal 4.0-10.0 [...] 36.0-66.0 Lymph % 14.8 % Low 24.0-44.0 [place] % 6.9 % Normal 2.0-8.0 Eos % 0.8 % Normal 0.0-3.0 Baso % 0.3 % Normal 0.0-1.0 Immature Granulocyte % 0.3 % Normal 0-3.0 Nucleated Red Blood Cell % 0.0 % Normal 0-0 Neutrophils # 6.8 10 Normal 1.5-8.5 Lymph # 1.3 10 Low 1.5-5.0 [place] # 0.6 10 Normal 0.0-0.8 Eos # 0.1 10 Normal 0.0-0.5 Baso # 0.0 10 Normal 0.0-0.2 Cardiac Marker Panel 06/09/[address] [place] [address] [phone] CPK Creatine Phosphokinase 176 U/L Normal 39-30 8 CK-MB Value Mass 1.5 NG/ML Normal <3.6 MB/CK Relative Index 0.85 Normal < Or =4 4 Troponin I < 0.02 NG/ML Normal < 0.10 5 Liver Profile 06/09/2021 Patient Service Cent er [facility] [place] [address] [phone] Ast/Sgot 18 U/L Normal 7-37 Alt/SGPT 29 U/L Normal 12-78 Alkaline Phosphatase 65 U/L Normal 45-117 Bilirubin,Total 0.3 mg/dL Normal 0.2-1.0 Bilirubin,Direct < 0.1 mg/dL Normal 0.0-0.2 Total Protein 6.8 GM/DL Normal 6.4-8.2 Albumin 4.1 GM/DL Normal 3.2-5.2 Albumin/Globulin Ratio 1.5 Normal Basic Metabolic Profile 06/09/2021 Patient Service [place] [id number] [phone] Glucose, Fasting 112 mg/dL High 70-100 Blood [...] Laboratory test finding 06/09/2021 [place] [address] [phone] Lipase 156 U/L Normal 73-393 1 DIAGNOSIS CRITERIA MMB ng/ml Relative Index (RI) NON-AMI < or = 5 N/A ARIAS ZONE > 5 < or = 4 AMI > 5 > 4 2 Troponin I Reference Interva l for Siemens [employer] LOCI: 99th Percentile= 0.00-0.045 ng/ml Risk Stratification: [...] 5 Troponin I Reference Interva l for [employer] LOCI: 99th Percentile= 0.00-0.045 ng/ml Risk Stratification: [...] Little GFR Left ESRD GFR <15 on INTERMEDIATE CARD TENDER Procedures Description No Information Available Medical Devices [...]
--- OUTSIDE RECORDS SUMMARY | 2021-07-16 09:20 | CCD | Continuity of Care Document ---
Author Author Adama FELDMAN M.D. Organization Unknown Address [address] [place] [address] Phone [phone] Care Team Providers Care 3D Artist Name Role Phone Ysabel MTZ M.D., Gordon Chaim UZIEL [phone] Problems Active Problems Provider Date Essential [...] CPT Code Status Date Vaccine Lot # [id number] Given 12/17/2020 Moderna Sars-(Co vid-19) vaccine, mRNA, LNP-S, PF, 100 mcg/ 0.5 mL 61835 Given 11/16/2020 Moderna Sars-(Co vid-19) vaccine, mRNA, LNP-S, PF, 100 mcg/ 0.5 mL 12150 Given 10/17/2019 Boostrix (Tdap) Tetnus, Diphtheria Toxoids & Acellular Pertussis [id number] 70984 Given 07/16/2015 TB Intradermal Test [id number] 68192 Given 12/11/2009 TB Intradermal Test 35796 36099 Given 12/27/2007 TB Intradermal Test [id number] 63299 Refused 10/17/2019 Influenza Virus Vaccine, Pradeep drivalent,multidose vial Vital Signs Date Vital Result Comment 06/10/2021 7:17am BP Systolic 124 mmHg BP Diastolic 78 mmHg Heart Rate 66 /min Body Temperature 96.8 F Respiratory Rate 17 /min Height 67 inches 5'7" Weight 180.38 lb O2 % BldC Oximetry 98 % Peak Expiratory Flow Rate 475 Estimated Peak Flow Rate [place] Body Weight 148 lb BMI (Body Mass Index) 28.2 kg/m2 11/28/2020 7:40am BP Systolic 118 mmHg BP Diastolic 72 mmHg Heart Rate 52 /min Body Temperature 97.1 F Respiratory Rate 16 /min Height 67 inches 5'7" Weight 180.38 lb Peak Expiratory Flow Rate 475 Estimated Peak Flow Rate [place] Body Weight 148 lb BMI (Body Mass Index) 28.2 kg/m2 Results Test Acquired Date Facility Test Result H/L Range Note Cardiac Marker Panel 06/09/2021 Patient Service [facility] [place] [address] [phone] CPK Creatine Phosphokinase 151 U/L Normal 39-30 8 CK-MB Value Mass 1.9 NG/ML Normal <3.6 MB/CK Relative Index 1.26 Normal < Or =4 1 Troponin I < 0.02 NG/ML Normal < 0.10 2 PT & Aptt 06/09/2021 Patient Service [facility] [place] [address] [phone] Prothrombin Time 12.0 seconds Normal 12.7-14.5 Inr 0.85 Normal 3 Partial Thromboplastin Time 27.8 seconds Normal 25.9-37.0 CBC With Differential 06/09/2021 [place] [address] [phone] White Blood Count 8.9 10 Normal 4.0-10.0 [...] 36.0-66.0 Lymph % 14.8 % Low 24.0-44.0 [place] % 6.9 % Normal 2.0-8.0 Eos % 0.8 % Normal 0.0-3.0 Baso % 0.3 % Normal 0.0-1.0 Immature Granulocyte % 0.3 % Normal 0-3.0 Nucleated Red Blood Cell % 0.0 % Normal 0-0 Neutrophils # 6.8 10 Normal 1.5-8.5 Lymph # 1.3 10 Low 1.5-5.0 [place] # 0.6 10 Normal 0.0-0.8 Eos # 0.1 10 Normal 0.0-0.5 Baso # 0.0 10 Normal 0.0-0.2 Cardiac Marker Panel 06/09/[address] [place] [address] [phone] CPK Creatine Phosphokinase 176 U/L Normal 39-30 8 CK-MB Value Mass 1.5 NG/ML Normal <3.6 MB/CK Relative Index 0.85 Normal < Or =4 4 Troponin I < 0.02 NG/ML Normal < 0.10 5 Liver Profile 06/09/2021 Patient Service Cent er [facility] [place] [address] [phone] Ast/Sgot 18 U/L Normal 7-37 Alt/SGPT 29 U/L Normal 12-78 Alkaline Phosphatase 65 U/L Normal 45-117 Bilirubin,Total 0.3 mg/dL Normal 0.2-1.0 Bilirubin,Direct < 0.1 mg/dL Normal 0.0-0.2 Total Protein 6.8 GM/DL Normal 6.4-8.2 Albumin 4.1 GM/DL Normal 3.2-5.2 Albumin/Globulin Ratio 1.5 Normal Basic Metabolic Profile 06/09/2021 Patient Service [place] [id number] [phone] Glucose, Fasting 112 mg/dL High 70-100 Blood [...] Laboratory test finding 06/09/2021 [place] [address] [phone] Lipase 156 U/L Normal 73-393 1 DIAGNOSIS CRITERIA MMB ng/ml Relative Index (RI) NON-AMI < or = 5 N/A ARIAS ZONE > 5 < or = 4 AMI > 5 > 4 2 Troponin I Reference Interva l for Siemens [employer] LOCI: 99th Percentile= 0.00-0.045 ng/ml Risk Stratification: [...] 5 Troponin I Reference Interva l for [employer] LOCI: 99th Percentile= 0.00-0.045 ng/ml Risk Stratification: [...] Little GFR Left ESRD GFR <15 on POOL INSTALLER Procedures Description No Information Available Medical Devices [...] truction Salome Feldman M.D. Plan of Treatment No Information Available Functional Status Functional Condition Comment Date Status Bifocal glasses Active Independent with all ADL's Activ e Mental Status Mental Condition Comment Date Status None Active Referrals Description No Information Available
[2021-07-16] MEDS ORDERED: LIDOCAINE 2% 100MG/5ML SDV (FOR ANES.) As Ordered ONE (10:24)
[2021-07-16] MEDS ORDERED: propofoL 200 MG/20 ML VIAL As Ordered ONE (10:24)
[2021-07-16] MEDS ORDERED: MIDAZOLAM INJ 2MG/2ML VIAL (J2250 PER 1MG) As Ordered ONE (10:24)
[2021-07-16] MEDS ORDERED: fentaNYL 250 MCG/5 ML INJECTION (J3010) As Ordered ONE (10:24)
[2021-07-16] MEDS ORDERED: ROCURONIUM BROMIDE 50 MG/5 ML VIAL As Ordered ONE ×2 (10:24→12:26)
[2021-07-16] MEDS ORDERED: BUPIVACAINE/EPIN 0.25% 30 ML VIAL As Ordered ONE (11:28)
[2021-07-16] MEDS ORDERED: dexameTHASONE 4 MG/ML 1ML VIAL (J1100 PER 1MG) As Ordered ONE ×2 (11:54→12:06)
[2021-07-16] MEDS ORDERED: ACETAMINOPHEN 1000MG 100ML IV BTL (OFIRMEV) (J0131 PER 10MG) As Ordered ONE (12:03)
[2021-07-16] MEDS ORDERED: SUGAMMADEX SODIUM 500 MG/5 ML VIAL (BRIDION) As Ordered ONE (12:06)
[2021-07-16] MEDS ORDERED: METOCLOPRAMIDE INJ 10MG/2ML VIAL (J2765 PER 1) As Ordered ONE (12:06)
[2021-07-16] MEDS ORDERED: ONDANSETRON 4MG/2ML VIAL As Ordered ONE (12:06)
[2021-07-16] MEDS ORDERED: KETOROLAC 60MG 2ML VIAL As Ordered ONE (12:10)
[2021-07-16] MEDS ORDERED: ePHEDrine SULFATE 25 MG/5 ML(5MG/ML) SYRINGE As Ordered ONE (12:12)
[2021-07-16] MEDS ORDERED: PHENYLephrine 500MCG 5ML (100MCG/ML) SYRINGE As Ordered ONE (12:15)
[2021-07-16] MEDS ORDERED: LR 1,000 ML IV SCH ×2 (13:20→13:45)
[2021-07-16] MEDS ORDERED: fentaNYL 100 MCG/2 ML INJECTION (J3010) IV PRN (13:20)
[2021-07-16] MEDS ORDERED: ONDANSETRON 4MG/2ML VIAL IV PRN (13:20)
[2021-07-16] MEDS ORDERED: oxyCODONE 5MG TAB PO PRN (13:20)
[2021-07-16] MEDS ORDERED: NORCO, ANEXSIA 5/325MG TABLET (HYDROcodone/ACETAMINOPHEN) PO PRN ×2 (13:45)
[2021-07-16 14:45] VITALS: BP 142/67
--- NOTE | 2021-07-16 15:37 | RO ---
OPERATIVE NOTE DATE OF OPERATION: 07/16/2021 PREOPERATIVE DIAGNOSIS: History of acute cholecystitis. POSTOPERATIVE DIAGNOSIS: History of acute cholecystitis. PROCEDURE: Laparoscopic cholecystectomy. SURGEON: FELICIANO CASTRO JR., MD BREAKDOWN WORKER: ALISA TIJERINA provided retraction, exposure and assistance with abdominal wall closure. ANESTHESIA: General endotracheal. ESTIMATED BLOOD LOSS: Minimal. FLUIDS: Crystalloid. BRIEF PROCEDURE SUMMARY: The patient was brought to the Operating Room, was given general anesthesia. After anesthesia and preoperative antibiotics were given, the patient was prepped and draped in the usual sterile fashion. Next, a supraumbilical incision was made with a skin knife, blunt dissection was carried down to fascia, Veress needle was placed into the abdominal cavity, insufflated to 15 mmHg of pressure, a dilating 10 mm trocar was placed and under direct visualization an epigastric and two lateral trocars were placed. The gallbladder was seen and at this point the gallbladder was tensely distended and there was a significant amount of omentum adherent to the gallbladder wall. The gallbladder wall was obviously thickened and I was able to grasp the gallbladder but it was distended enough that I was concerned that we would need to use the aspiration needle given its presentation. I anticipated the cystic duct was obstructed and has an empyema or a blocked cystic duct at this time. In any case, the peritoneum which was incredibly thickened on the lateral wall along the anterior and then along the medial side was taken down with the hook cautery and eventually I was able to get a very nice window where I was able to see the artery and the cystic duct nicely and dissect those off the surrounding structures. Once these were dissected nicely and a good window behind the neck of the gallbladder was created, the cystic artery was clipped proximally, distally and transected and the cystic duct was then clipped proximally and distally and transected. The gallbladder then was slowly removed from the gallbladder wall using electrocautery. I did enter the gallbladder wall at one point and I did decompress this gallbladder to some extent. Purulent material was mostly mucous that was appreciated consistently with a chronically obstructed cystic duct from his previous episode of cholecystitis. In any case, the gallbladder was taken out through the umbilicus. It was very thickened and there was a large stone in this, thus the gallbladder 10 mm site needed to be enlarged a fair bit to get this gallbladder out. Eventually, I was able to get the gallbladder out and the incisions were closed with 4-0 Vicryl after the umbilicus was closed with 0 Vicryl and the fascial layer. Steri-Strips and a dry sterile dressing was applied. The patient was awakened, extubated and brought to the Recovery Room awake, alert and hemodynamically stable. Sponge and needle counts correct x2.
== END 2021-07-16 15:28 | disposition home or self-care (01) ==
LOC: M SDC 09:13
PROVIDERS: ATTEND Surgery
DX: K80.12 Calculus of gallbladder with acute and chronic cholecystitis without obstruction (principal); I10 Essential (primary) hypertension; R06.83 Snoring; Z79.899 Other long term (current) drug therapy
CPT/HCPCS: 47562; 88304; J0131; J0690; J1100; J1885; J2250; J2370; J2405; J2765; J3010

== ENCOUNTER → 2021-08-21 | Outpatient (CLI) | payer OTHER ==
[~2021-08-21] MED LIST changes: -LIDOCAINE 1% MDV 20ML VIAL SQ PRN; -LR 1,000 ML IV ONE; -ceFAZolin SOD 2 GM in IV 1 EA IV ONE
== END ==
LOC: M LABSMTC 11:20
PROVIDERS: ATTEND Anesthesiology
DX: Z01.812 Encounter for preprocedural laboratory examination (principal); Z11.52 Encounter for screening for COVID-19

== ENCOUNTER 2021-08-26 12:17 | Day surgery (SDC) | payer OTHER ==
[~2021-08-26] VITALS: Ht 167.6 cm; Wt 82.1 kg
[~2021-08-26 12:17] MED LIST changes: +NS 1,000 ML IV ONE
[2021-08-26] MEDS ORDERED: LIDOCAINE 2% 100MG/5ML SDV (FOR ANES.) As Ordered ONE (13:41)
[2021-08-26] MEDS ORDERED: propofoL 200 MG/20 ML VIAL As Ordered ONE ×2 (13:41→13:52)
--- NOTE | 2021-08-26 14:09 | ROOR ---
Patient Name: Adama Cordoba Procedure Date: 08/26/2021 1:44 PM Date of : 1960 Age: 61 Room: [facility] Gender: Male Note Status: Finalized Procedure: Colonoscopy Indications: High risk colon cancer surveillance: Personal history of colonic polyps Providers: Gordon Grady Jr, MD Referring MD: Salome Davis MD Requesting Provider: Medicines: Propofol per Anesthesia Complications: No immediate complications. Procedure: Pre-Anesthesia Assessment: - Prior to the procedure, a History and Physical was performed, and patient medications and allergies were reviewed. The patient is competent. The risks and benefits of the procedure and the sedation options and risks were discussed with the patient. All questions were answered and informed consent was obtained. Patient identification and proposed procedure were verified by the physician and the nurse in the pre-procedure area and in the procedure room. Mental Status Examination: alert and oriented. Airway Examination: normal oropharyngeal airway and neck mobility. Respiratory Examination: clear to auscultation. CV Examination: normal. ASA Grade Assessment: II - A patient with mild systemic disease. After reviewing the risks and benefits, the patient was deemed in satisfactory condition to undergo the procedure. The anesthesia plan was to use moderate sedation / analgesia (conscious sedation). Immediately prior to administration of medications, the patient was re-assessed for adequacy to receive sedatives. The heart rate, respiratory rate, oxygen saturations, blood pressure, adequacy of pulmonary ventilation, and response to care were monitored throughout the procedure. The physical status of the patient was re-assessed after the procedure. The Colonoscope was introduced through the anus and advanced to the cecum, identified by appendiceal orifice and ileocecal valve. The colonoscopy was performed without difficulty. The patient tolerated the procedure well. The quality of the bowel preparation was adequate. Findings: A diminutive polyp was found in the transverse colon. The polyp was removed with a jumbo cold forceps. Resection and retrieval were complete. The rectum, recto-sigmoid colon, sigmoid colon, descending colon, ascending colon, cecum, appendiceal orifice and ileocecal valve appeared normal. Impression: - One diminutive polyp in the transverse colon, removed with a jumbo cold forceps. Resected and retrieved. - The rectum, recto-sigmoid colon, sigmoid colon, descending colon, ascending colon, cecum, appendiceal orifice and ileocecal valve are normal. Recommendation: - Discharge patient to home (ambulatory). - Repeat colonoscopy in 5 years for surveillance. Procedure Code(s): --- Professional --- 45319, Colonoscopy, flexible; with biopsy, single or multiple Diagnosis Code(s): --- Professional --- Z86.010, Personal history of colonic polyps K63.5, Polyp of colon CPT copyright 2019 [employer]. All rights reserved. The codes documented in this report are preliminary and upon oscillograph technician review may be revised to meet current compliance requirements. Gordon Grady MD Gordon Grady Jr, MD 08/26/2021 2:08:48 PM Electronically signed by Gordon Grady Jr, MD Number of Addenda: 0 Note Initiated On: 08/26/2021 1:44 PM Estimated Blood Loss: Estimated blood loss: none.
[2021-08-26 14:25] VITALS: BP 119/81
== END 2021-08-26 14:27 | disposition home or self-care (01) ==
LOC: M OPP 12:17
PROVIDERS: ATTEND Surgery
DX: Z12.11 Encounter for screening for malignant neoplasm of colon (principal); Z86.010 Personal history of colon polyps; D12.6 Benign neoplasm of colon, unspecified; K21.9 Gastro-esophageal reflux disease without esophagitis; Z79.899 Other long term (current) drug therapy

== ENCOUNTER → 2022-01-16 | Outpatient (CLI) | payer OTHER ==
[~2022-01-16] MED LIST changes: -NS 1,000 ML IV ONE
[2022-01-16 16:00] LABS: BASO % 0.4 % (0.0-1.0); EOS % 0.4 % (0.0-3.0); HEMOGLOBIN 15.4 g/dl (13.5-17.5); LYMPH # 1.1 10^3/uL (1.5-5.0); LYMPH % 14.9 % (24.0-44.0); MEAN CORPUSCULAR HEMOGLOBIN 30.7 pg (27.0-33.0); MEAN CORPUSCULAR VOLUME 87.8 fl (80.0-96.0); MONO # 0.5 10^3/uL (0.0-0.8); MONO % 6.9 % (2.0-8.0); NEUTROPHILS # 5.6 10^3/uL (1.5-8.5); NEUTROPHILS % 77.1 % (36.0-66.0); PLATELET COUNT, AUTOMATED 246 10^3/uL (150-450); RED BLOOD COUNT 5.01 10^6/uL (4.30-6.10); WHITE BLOOD COUNT 7.3 10^3/uL (4.0-10.0)
[2022-01-16 16:28] LABS: ALBUMIN 4.2 GM/DL (3.2-5.2); ALT/SGPT 41 U/L (12-78); BILIRUBIN,TOTAL 0.7 MG/DL (0.2-1.0); BLOOD UREA NITROGEN 14 MG/DL (7-18); CALCIUM LEVEL 9.4 MG/DL (8.8-10.2); CARBON DIOXIDE LEVEL 29 MEQ/L (21-32); CHLORIDE LEVEL 107 MEQ/L (98-107); CHOLESTEROL LEVEL 224 MG/DL (<200); CHOLESTEROL RISK RATIO 3.294 (<5); CREATININE FOR GFR 0.86 MG/DL (0.70-1.30); GLOMERULAR FILTRATION RATE > 60.0 (>49); GLUCOSE, FASTING 105 MG/DL (70-100); HDL CHOLESTEROL 68 MG/DL (>40); LDL CHOLESTEROL 141 MG/DL (<100); NON-HDL-C 156 MG/DL; POTASSIUM SERUM 4.4 MEQ/L (3.5-5.1); SODIUM LEVEL 140 MEQ/L (136-145); TRIGLYCERIDES LEVEL 77 MG/DL (<150)
== END ==
LOC: M PLALAB 13:16
PROVIDERS: ATTEND Family Medicine
DX: I10 Essential (primary) hypertension (principal); Z12.5 Encounter for screening for malignant neoplasm of prostate
CPT/HCPCS: 36415; 80053; 80061; 85025; G0103

== ENCOUNTER → 2022-01-16 | Outpatient (CLI) | payer OTHER | LOC: M RAD 08:55 | PROVIDERS: ATTEND Family Medicine | DX: Z12.2 Encounter for screening for malignant neoplasm of respiratory organs (principal); Z87.891 Personal history of nicotine dependence; J43.9 Emphysema, unspecified ==

== ENCOUNTER → 2023-03-25 | Outpatient (CLI) | payer OTHER | LOC: M RAD 14:16 | PROVIDERS: ATTEND Family Medicine | DX: Z12.2 Encounter for screening for malignant neoplasm of respiratory organs (principal); Z87.891 Personal history of nicotine dependence ==

== ENCOUNTER → 2024-07-19 | Outpatient (CLI) | payer OTHER ==
[2024-07-19 13:33] LABS: BASO % 0.4 % (0.0-1.0); EOS # 0.1 10^3/uL (0.0-0.5); EOS % 1.3 % (0.0-3.0); HEMATOCRIT 43.1 % (42.0-52.0); HEMOGLOBIN 14.6 g/dl (13.5-17.5); LYMPH # 1.5 10^3/uL (1.5-5.0); LYMPH % 27.7 % (24.0-44.0); MEAN CORPUSCULAR HEMOGLOBIN 31.2 pg (27.0-33.0); MEAN CORPUSCULAR HGB CONC 33.9 g/dl (32.0-36.5); MEAN CORPUSCULAR VOLUME 92.1 fl (80.0-96.0); MONO # 0.5 10^3/uL (0.0-0.8); MONO % 9.5 % (2.0-8.0); NEUTROPHILS # 3.3 10^3/uL (1.5-8.5); NEUTROPHILS % 60.9 % (36.0-66.0); PLATELET COUNT, AUTOMATED 241 10^3/uL (150-450); RED BLOOD COUNT 4.68 10^6/uL (4.30-6.10); WHITE BLOOD COUNT 5.4 10^3/uL (4.0-10.0)
[2024-07-19 14:08] LABS: ALBUMIN 4.1 G/DL (3.2-5.2); ALKALINE PHOSPHATASE 55 U/L (40-129); ALT/SGPT 34 U/L (7.0-40); AST/SGOT 17 U/L (<34); BILIRUBIN,TOTAL 0.7 MG/DL (0.3-1.2); BLOOD UREA NITROGEN 12 MG/DL (9-23); CALCIUM LEVEL 9.7 MG/DL (8.3-10.6); CARBON DIOXIDE LEVEL 28 MMOL/L (20-31); CHLORIDE LEVEL 107 MMOL/L (98-107); CHOLESTEROL LEVEL 224 MG/DL (<200); CHOLESTEROL RISK RATIO 2.86 (<5); CREATININE FOR GFR 0.89 MG/DL (0.70-1.30); GLOMERULAR FILTRATION RATE > 60.0 (>49); GLUCOSE, FASTING 90 MG/DL (74-106); HDL CHOLESTEROL 78.3 MG/DL (>40); LDL CHOLESTEROL 133.1 MG/DL (<100); NON-HDL-C 145.7 MG/DL; POTASSIUM SERUM 5.4 MMOL/L (3.5-5.1); SODIUM LEVEL 139 MMOL/L (136-145); TOTAL PROTEIN 7.3 G/DL (5.7-8.2); TRIGLYCERIDES LEVEL 63 MG/DL (<150)
== END ==
LOC: M PLALAB 11:31
PROVIDERS: ATTEND Registered Nurse
DX: I10 Essential (primary) hypertension (principal)

== ENCOUNTER → 2024-07-25 | Outpatient (CLI) | payer OTHER ==
[2024-07-27 11:57] LABS: PSA FREE 0.3 ng/mL; PSA TOTAL 3.3 ng/mL (< OR = 4.0)
== END ==
LOC: M PLALAB 11:29
PROVIDERS: ATTEND Registered Nurse
DX: M10.9 Gout, unspecified (principal); F52.21 Male erectile disorder

== ENCOUNTER 2025-07-05 13:53 | Emergency (ER) | payer OTHER ==
[2025-07-05] MEDS ORDERED: SILD100T PO (14:11)
[2025-07-05] MEDS ORDERED: TAMS-18 PO (14:11)
[2025-07-05 14:29] LABS: BASO # 0.0 10^3/uL (0.0-0.2); BASO % 0.4 % (0.0-1.0); EOS # 0.0 10^3/uL (0.0-0.5); EOS % 0.7 % (0.0-3.0); LYMPH # 1.1 10^3/uL (1.5-5.0); LYMPH % 20.6 % (24.0-44.0); MONO # 0.4 10^3/uL (0.0-0.8); MONO % 6.6 % (2.0-8.0); NEUTROPHILS # 3.9 10^3/uL (1.5-8.5); NEUTROPHILS % 71.5 % (36.0-66.0); PLATELET COUNT, AUTOMATED 253 10^3/uL (150-450)
[2025-07-05 14:51] LABS: CALCIUM LEVEL 8.8 MG/DL (8.3-10.6); CARBON DIOXIDE LEVEL 27 MMOL/L (20-31); CHLORIDE LEVEL 106 MMOL/L (98-107); CREATININE FOR GFR 0.82 MG/DL (0.70-1.30); GLOMERULAR FILTRATION RATE > 90.0 (>49); POTASSIUM SERUM 4.7 MMOL/L (3.5-5.1); SODIUM LEVEL 141 MMOL/L (136-145)
[2025-07-05 16:40] LABS: CK-MB VALUE MASS 2.6 NG/ML (<3.6)
[2025-07-05 16:46] LABS: CPK CREATINE PHOSPHOKINASE 228 U/L (46-171); MB/CK RELATIVE INDEX 1.14 (< OR =4)
[2025-07-05 18:29] LABS: CK-MB VALUE MASS 1.9 NG/ML (<3.6)
[2025-07-05 18:34] LABS: CPK CREATINE PHOSPHOKINASE 201.0 U/L (46-171); MB/CK RELATIVE INDEX 0.94 (< OR =4)
[2025-07-05 19:00] VITALS: BP 125/64; TEMP 98; O2SAT 98
== END 2025-07-05 19:29 | disposition home or self-care (01) ==
LOC: M ED 13:53
DX: R55 Syncope and collapse (principal); I10 Essential (primary) hypertension; N40.0 Benign prostatic hyperplasia without lower urinary tract symptoms; Z87.891 Personal history of nicotine dependence; Z79.899 Other long term (current) drug therapy

== ENCOUNTER → 2025-07-10 | Outpatient (CLI) | payer OTHER ==
[~2025-07-10] MED LIST changes: +SILD100T PO; +TAMS-18 PO
[2025-07-10 13:50] LABS: BASO # 0.0 10^3/uL (0.0-0.2); BASO % 0.5 % (0.0-1.0); EOS # 0.1 10^3/uL (0.0-0.5); EOS % 1.5 % (0.0-3.0); LYMPH # 1.6 10^3/uL (1.5-5.0); LYMPH % 27.8 % (24.0-44.0); MONO # 0.7 10^3/uL (0.0-0.8); MONO % 11.3 % (2.0-8.0); NEUTROPHILS # 3.4 10^3/uL (1.5-8.5); NEUTROPHILS % 58.6 % (36.0-66.0); PLATELET COUNT, AUTOMATED 268 10^3/uL (150-450)
[2025-07-10 14:05] LABS: ALT/SGPT 26 U/L (7.0-40); AST/SGOT 22 U/L (<34); CALCIUM LEVEL 9.2 MG/DL (8.3-10.6); CARBON DIOXIDE LEVEL 28 MMOL/L (20-31); CHLORIDE LEVEL 103 MMOL/L (98-107); CHOLESTEROL LEVEL 224 MG/DL (<200); CHOLESTEROL RISK RATIO 2.84 (<5); CREATININE FOR GFR 0.87 MG/DL (0.70-1.30); GLOMERULAR FILTRATION RATE > 90.0 (>49); LDL CHOLESTEROL 130.2 MG/DL (<100); NON-HDL-C 145.2 MG/DL; POTASSIUM SERUM 4.4 MMOL/L (3.5-5.1); SODIUM LEVEL 138 MMOL/L (136-145); TRIGLYCERIDES LEVEL 75 MG/DL (<150)
[2025-07-10 14:11] LABS: ESTIMATED AVERAGE GLUCOSE 103.0 MG/DL (60-110)
== END ==
LOC: M PLALAB 11:38
PROVIDERS: ATTEND Registered Nurse
DX: I10 Essential (primary) hypertension (principal)